=== PATIENT | female | born 1935 | race Caucasian/White ===

== ENCOUNTER 2022-03-15 10:06 | Observation (INO) | payer MEDICARE, MEDICAID, SELFPAY ==
[2022-03-15] VITALS (9 sets, daily range): BP systolic 120–150; BP diastolic 77–91; PULSE 74–90; RESP 16; TEMP 36.7–37.3; O2SAT 90–96; BMI 24.6; BMI 23.5
--- NOTE | 2022-03-15 11:06 | CT_ITS ---
WS: [id number] CT ABDOMEN AND PELVIS NONCONTRAST HISTORY: Pain and tenderness. TECHNIQUE: Imaging performed through the abdomen and pelvis. Coronal and sagittal reformats are submi tted. All CT scans at [facility] use at least one of these dose optimization techniques: auto mated exposure control; mA and/or kV adjustment per patient size (includes targeted exams where dose is matched to clinical indication); or iterative reconstruction. DLP: 1007.82 mGy.cm COMPARISON: None available. Lower thorax: RIGHT pleural-based calcification. Heart size is normal. Small hiatal hernia. Liver: Hepatic granulomatous. No mass or bile duct dilatation. Gallbladder: Normal gallbladder. Pancreas: Mild atrophy of the pancreas. No mass or inflammation. Spleen: Normal. Adrenal glands: Normal. No mass. Right kidney: Normal size kidney. Exophytic cyst from the lower pole measures 6.3 x 6.6 cm. No renal obstruction. Left kidney: Normal size kidney with no mass or hydronephrosis. Aorta: Ectatic calcified thoracic aorta. 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 No free fluid, intraperitoneal air or significant lymphadenopathy. GI tract: Nondistended stomach. No dilatation of the small bowel. Extensive constipation and ectatic tortuous colon. Beginning in the descending colon there is pericol onic inflammation and wall thickening and numerous diverticula. There is fluid within the submucosa o f the distal descending and the sigmoid colon. No free air or focal abscess. Abdominal wall: Negative. No hernia. Pelvis: No free fluid or adenopathy. Urinary bladder is not distended. Osseous structures: Unremarkable. CT/CT abdomen pelvis wo con [id number] IMPRESSION: 1. Moderate to severe acute diverticulitis beginning in the distal descending colon through the sigmoid colon. Circumferential wall thickening with edema and inflammation. There is crescentic shaped fluid in the wall of the descending c olon. Without contrast cannot exclude abscess. This area measures approximately 3.8 x 0.8 cm. Extensive diverticular disease. 2. No free fluid or free air. 3. Extensive atherosclerosis aorta with ectasia. 4. RIGHT renal cyst.
--- NOTE | 2022-03-15 11:27 | W.ED.GENADLT ---
HPI - General Adult General: Chief complaint: General Medical Stated complaint: Groin Pain Time Seen by Provider: 03/15/22 10:16 History of Present Illness: 86-year-old female reports left lower abdominal and pelvic pain for the last 2 or 3 days. He has been getting worse. She reports no trauma. She has not had any nausea, vomiting, fever. It is worse with movement or palpation. Her last bowel movement was 3 days ago but this is not unusual for her. She is able to pass gas. She denies any abnormal symptoms with her urine. She does have a history of diverticulitis in the remote past. She denies any hematochezia or melena. Physical Exam Narrative: EXAM NARRATIVE: I have reviewed the triage vital signs. Const: Well-nourished, Well-developed, appearing stated age, NAD Eyes: EOMI, no conjunctival injection, and symmetrical lids. ENMT: Atraumatic head and facial exam, external nose and ears normal Neck: Symmetric, trachea midline, no swelling, no JVD, ROM wnl CVS: Regular rate, radial pulse 2+, no peripheral edema RESP: Unlabored respirations, symmetric expansion, Clear to auscultation bilaterally GI: TTP in LLQ and left mid abdomen MSK: Normocephalic/Atraumatic, extremities w/o deformity, no cyanosis or clubbing, no edema. Left hip is not tender with palpation but if I passively flex her hip, it causes LLQ pain Skin: Warm, Dry, No rashes or lesions noted. Neuro: Sensation grossly intact, DAVIS, no focal neurologic deficits Psych: awake, alert, oriented, appropriate mood and affect Course Vital Signs: Vital signs: Vital Signs Temperature 98.0 F 03/15/22 10:16 Pulse Rate 90 03/15/22 10:16 Respiratory Rate 16 03/15/22 11:35 Blood Pressure 138/80 03/15/22 10:16 Pulse Oximetry 95 03/15/22 10:16 [facility] - General Adult Medical Decision Making Diverticulitis, infectious colitis, stercoral colitis, urinary tract infection, pathologic fracture, neoplastic mass or process, free fluid in the pelvis, ovarian cyst is less likely in this age group, ureterolithiasis, DVT in the iliac or proximal femoral vein, other. CT scan shows moderate to severe acute diverticulitis of the descending and sigmoid colon. There is a crescentic shaped fluid in the wall of the descending colon. Unfortunately the patient could not have IV contrast due to anaphylactic reaction in the past. Therefore this 3.8 x 0.8 cm fluid collection seen on the CT scan is a possible abscess, without contrast this cannot be excluded. Given the patient's age and these findings, I recommended admission. Ciprofloxacin and Flagyl will be started. I consulted with Dr. Avalos, hospitalist for admission. I have also placed a consult for general surgery to follow along given this possible abscess. I am awaiting a return call from Dr. Valdez Lab Data : 03/15/22 11:25 03/15/22 11:25 Radiology Impressions Abdomen/Pelvis CT 03/15/22 11:06 IMPRESSION: 1. Moderate to severe acute diverticulitis beginning in the distal descending colon through the sigmoid colon. Circumferential wall thickening with edema and inflammation. There is crescentic shaped fluid in the wall of the descending colon. Without contrast cannot exclude abscess. This area measures approximately 3.8 x 0.8 cm. Extensive diverticular disease. 2. No free fluid or free air. 3. Extensive atherosclerosis aorta with ectasia. 4. RIGHT renal cyst. Laboratory Results WBC 10.6 10^3/uL (4.0-10.0) H 03/15/22 11:25 RBC 4.06 10^6/uL (4.1-5.3) L 03/15/22 11:25 Hgb 13.4 g/dL (11.5-15.3) 03/15/22 11:25 Hct 41.0 % (37.0-47.0) 03/15/22 11:25 MCV 101.0 fl (81-99) H 03/15/22 11:25 MCH 33.0 pg (28.0-34.0) 03/15/22 11:25 MCHC 32.7 g/dL (30.0-36.0) 03/15/22 11:25 RDW 13.4 % (12.1-15.1) 03/15/22 11:25 Plt Count 186 10^3/cmm (130-400) 03/15/22 11:25 MPV 11.3 fL (7.4-10.4) H 03/15/22 11:25 Neut % (Auto) 71.2 % 03/15/22 11:25 Lymph % (Auto) 17.4 % 03/15/22 11:25 [place] % (Auto) 10.5 % 03/15/22 11:25 Eos % (Auto) 0.2 % 03/15/22 11:25 Baso % (Auto) 0.2 % 03/15/22 11:25 Neut # (Auto) 7.58 10^3/uL (1.8-7.7) 03/15/22 11:25 Lymph # (Auto) 1.9 10^3/uL (0.8-4.8) 03/15/22 11:25 [place] # (Auto) 1.1 10^3/uL (0.2-0.9) H 03/15/22 11:25 Eos # (Auto) 0.0 10^3/uL (0.0-0.8) 03/15/22 11:25 Baso # (Auto) 0.0 10^3/uL (0.0-0.1) 03/15/22 11:25 Nucleated RBC % (auto) 0 % 03/15/22 11:25 Nucleated RBCs # 0.0 /100WBC 03/15/22 11:25 Sodium 136 mmol/L (136-145) 03/15/22 11:25 Potassium 3.7 mmol/L (3.5-5.1) 03/15/22 11:25 Chloride 99 mmol/L (98-107) 03/15/22 11:25 Carbon Dioxide 26 mmol/L (22-29) 03/15/22 11:25 Anion Gap 14.7 (5-19) 03/15/22 11:25 BUN 12 mg/dL (8-23) 03/15/22 11:25 Creatinine 0.7 mg/dL (0.5-0.9) 03/15/22 11:25 GFR Calculation Not Reportable 03/15/22 11:25 Glucose 105 mg/dL (65-115) 03/15/22 11:25 Calculated Osmolality 282 mOsm/kg (285-295) L 03/15/22 11:25 Calcium 9.1 mg/dL (8.5-10.5) 03/15/22 11:25 Total Bilirubin 0.8 mg/dL (0.15-1.2) 03/15/22 11:25 AST 12 U/L (0-32) 03/15/22 11:25 ALT < 5 U/L (0-33) 03/15/22 11:25 Alkaline Phosphatase 73 IU/L (35-105) 03/15/22 11:25 Total Protein 7.1 g/dL (6.6-8.7) 03/15/22 11:25 Albumin 3.9 g/dL (3.5-5.2) 03/15/22 11:25 Globulin 3.2 g/dL (1.3-4.6) 03/15/22 11:25 Discharge Plan Discharge Condition: Stable Prescriptions: No Action lisinopril 20 mg tablet 20 mg PO DAILY 0RF coenzyme Q10 10 mg Capsule 10 mg PO DAILY 0RF amlodipine 2.5 mg tablet 2.5 mg PO DAILY 0RF garlic 500 mg Capsule 500 mg PO DAILY 0RF lovastatin 20 mg tablet 20 mg PO DAILY 0RF Vitamin D3 25 mcg (1,000 unit) Capsule 25 mcg PO DAILY 0RF aspirin 81 mg Capsule 81 mg PO DAILY 0RF Coding Level of Care Code ED Senior Strategy Analyst for Nicky Hathaway
[2022-03-15] MEDS: morphine 4 mg/mL SDV 1 mL 2 MG IVP ×2 (11:35→20:22)
--- NOTE | 2022-03-15 11:36 | PC.NURSE ---
amb pt to bathroom to provide urine specimen pt returned to room stating that she could not provide ua at this time.
[2022-03-15 11:57] LABS: Basophils % 0.2 %; Eosinophils % 0.2 %; Hemoglobin 13.4 g/dL (11.5-15.3); Lymphocytes # 1.9 10^3/uL (0.8-4.8); Lymphocytes % 17.4 %; Mean Corpuscular HGB Conc 32.7 g/dL (30.0-36.0); Mean Platelet Volume 11.3 fL (7.4-10.4); Monocytes # 1.1 10^3/uL (0.2-0.9); Monocytes % 10.5 %; Neutrophils # 7.58 10^3/uL (1.8-7.7); Neutrophils % 71.2 %; Nucleated Red Blood Cells % 0 %; Platelet Count 186 10^3/cmm (130-400); Red Blood Count 4.06 10^6/uL (4.1-5.3); Red Cell Distribution Width 13.4 % (12.1-15.1); White Blood Count 10.6 10^3/uL (4.0-10.0)
[2022-03-15 12:19] LABS: Alanine Aminotransferase < 5 U/L (0-33); Albumin Level 3.9 g/dL (3.5-5.2); Alkaline Phosphatase 73 IU/L (35-105); Aspartate Amino Transferase 12 U/L (0-32); Blood Urea Nitrogen 12 mg/dL (8-23); Calcium 9.1 mg/dL (8.5-10.5); Carbon Dioxide 26 mmol/L (22-29); Chloride 99 mmol/L (98-107); Globulin 3.2 g/dL (1.3-4.6); Glucose 105 mg/dL (65-115); Osmolality Calculated 282 mOsm/kg (285-295); Sodium 136 mmol/L (136-145); Total Bilirubin 0.8 mg/dL (0.15-1.2); Total Protein 7.1 g/dL (6.6-8.7)
[2022-03-15 12:28] LABS: Anion Gap 14.7 (5-19); Potassium 3.7 mmol/L (3.5-5.1)
[2022-03-15] MEDS: metroNIDAZOLE IV 500 MG/100 ML PREMIX 100 MG IV (13:19)
[2022-03-15] MEDS: ciprofloxacin 400 MG/200 ML PREMIX 200 MG IV (14:02)
--- NOTE | 2022-03-15 14:05 | PM.HP ---
Providers/Chief Complaint Chief Complaint: Groin Pain History of Present Illness Lana Almendarez is a 86 year old female with PMH of HTN came in with C/O left lower quadrant abdominal pain Started on Monday and since then it has got progressively worsened, she describes the pain as sharp pain, Radiating along thighs, she has denied any fever chills nausea vomiting, she has history of chronic constipation, usually the frequency of BM is twice a week, she does take laxatives at home as needed. Pertinent Imaging studies : CT abdomen pelvis wo con?: Moderate to severe acute diverticulitis beginning in the distal descending colon through the sigmoid colon. Circumferential wall thickening with edema and inflammation. There is crescentic shaped fluid in the wall of the descending colon. Without contrast cannot exclude abscess. This area measures approximately 3.8 x 0.8 cm. Extensive diverticular disease. No free fluid or free air. Pertinent Labs : WBC : 10.6 , H&H : 13/41 , PLT : 186 , Na: 136, k :3.7 BUN/SCR ; 12/0.7 AST,ALT,ALP:Normal Patinet received metro and cipro in the ER. Review of Systems General: Reports: 10 or more systems reviewed and unremarkable except in HPI and below Const: Denies: fever(s), chills, body aches, change in appetite or diaphoresis Card: Denies: palpitations, edema, swelling of feet/ankles, dyspnea on exertion, orthopnea or leg pain with exertion Resp: Denies: dyspnea, productive cough, wheezing or pain on inspiration GI: Reports: abdominal pain and constipation; Denies: nausea, vomiting or diarrhea : Denies: flank pain Musc: Denies: back pain, extremity pain or extremity swelling Neuro: Denies: headache(s), difficulty walking or confusion Medications/Allergies Home Medications Medication Instructions Recorded Confirmed Last Taken Type amlodipine 2.5 mg tablet 2.5 mg PO DAILY 03/15/22 03/15/22 03/15/22 History aspirin 81 mg capsule 81 mg PO DAILY 03/15/22 03/15/22 03/15/22 History cholecalciferol (vitamin D3) 25 25 mcg PO DAILY 03/15/22 03/15/22 03/15/22 History mcg (1,000 unit) capsule (Vitamin D3) coenzyme Q10 10 mg capsule 10 mg PO DAILY 05/03/15/22 03/15/22 History garlic 500 mg capsule 500 mg PO DAILY 03/15/22 03/15/22 03/15/22 History lisinopril 20 mg tablet 20 mg PO DAILY 03/15/22 03/15/22 03/15/22 History lovastatin 20 mg tablet 20 mg PO DAILY 03/15/22 03/15/22 03/15/22 History Allergies Allergy/AdvReac Type Severity Reaction Status Date / Time contrast dye Allergy ALGY-Anaphy Uncoded 03/15/22 12:37 laxis Vitals/I&O/Wt Last Vital Signs Temp 98.0 F 03/15/22 10:16 Pulse 90 03/15/22 10:16 Resp 16 03/15/22 11:35 BP 138/80 03/15/22 10:16 Pulse Ox 95 03/15/22 10:16 Weight last 48 hrs Weight 67.132 kg Physical Exam Const: COMMON NORMALS: patient oriented x3 HENMT: COMMON NORMALS: normocephalic and atraumatic HEAD & SCALP: normocephalic and atraumatic Eye: GENERAL EYE: appearance normal, both eyes and all related structures Chest: COMMONS NORMALS: normal inspection of the chest and normal palpation of entire chest wall CHEST: Yes Symmetrical chest wall rise Resp: COMMON NORMALS: normal respiratory effort, No retractions, No use of accessory muscles and clear to auscultation bilaterally EFFORT & INSPECTION: Yes symmetric chest movement AUSCULTATION: clear to auscultation bilaterally Cardio: COMMON NORMALS: regular rate, regular rhythm, S1 normal heart sound present, S2 normal heart sound present, No gallops present (Cardio), No murmurs present (Cardio), No rub (Cardio) and Peripheral pulses 2+ throughout RATE: regular rate RHYTHM: regular rhythm HEART SOUNDS: S1 normal heart sound present and S2 normal heart sound present PERIPHERAL PULSES: Peripheral pulses 2+ throughout GI: COMMON NORMALS: Normal to inspection, nondistended, normoactive bowel sounds present AUSCULTATION: Yes normoactive bowel sounds RECTAL EXAM: deferred OTHER: Left lower quadrant tenderness present, no guarding no rigidity no rebound tenderness. Extremity: COMMON NORMALS: no clubbing, cyanosis or edema and no pedal edema Neuro: COMMON NORMALS: patient oriented x3 Data : 03/15/22 11:25 03/15/22 11:25 A&P Assessment and plan (1) Diverticulitis large intestine: Status: Acute (2) Hypertension: Status: Acute Plan 86 year old female with PMH of HTN came in with C/O left lower quadrant abdominal pain Started on Monday and since then it has got progressively worsened. Assessment: Acute diverticulitis: CT abdomen pelvis wo con?: Moderate to severe acute diverticulitis beginning in the distal descending colon through the sigmoid colon. Circumferential wall thickening with edema and inflammation. There is crescentic shaped fluid in the wall of the descending colon. Without contrast cannot exclude abscess. This area measures approximately 3.8 x 0.8 cm. Extensive diverticular disease. No free fluid or free air. Continue Zosyn IV hydration Pain control Bowel regimen History of hypertension: Continue amlodipine, lisinopril DVT prophylaxis: On Lovenox CODE STATUS:AND Attestations Medical Necessity Statement*: Patient needs to be in hospital for the management of extensive diverticulitis,need for I.V Abxs.Anticipated LOS Greater then 2 midnights. Time Spent in Patient Care: Greater than 35 minutes (>than 50% of time spent in counselling and/or direct pt care on unit). Coding Level of Care Code Acute International Marketing Coordinator for Nicky Fwd Exam Comprehensive Diagnoses Diverticulitis large intestine K57.32 Hypertension I10
[2022-03-15] MEDS: sodium chloride 0.9% 1,000 ML 50 ML IV (14:41)
--- NOTE | 2022-03-15 16:49 | PC.NURSE ---
REPORT CALLED TO DANUTA ZAMARRIPA.
[2022-03-15] MEDS: piperacillin-tazobactam 3.375 GM in sodium chloride 0.9% (plus) 50 ML IV (18:20)
[2022-03-15] MEDS: docusate sodium 100 mg Capsule PO (20:15)
[2022-03-16] VITALS (9 sets, daily range): BP systolic 107–131; BP diastolic 64–87; PULSE 70–90; RESP 14–18; TEMP 36.6–37.3; O2SAT 90–96
[2022-03-16] MEDS: piperacillin-tazobactam 3.375 GM in sodium chloride 0.9% (plus) 50 ML IV ×3 (00:07→17:23)
[2022-03-16] MEDS: morphine 4 mg/mL SDV 1 mL 2 MG IVP (03:43)
[2022-03-16 05:24] LABS: Basophils % 0.3 %; Eosinophils % 0.4 %; Hematocrit 36.3 % (37.0-47.0); Hemoglobin 12.2 g/dL (11.5-15.3); Lymphocytes # 1.7 10^3/uL (0.8-4.8); Lymphocytes % 21.7 %; Mean Corpuscular HGB Conc 33.6 g/dL (30.0-36.0); Mean Corpuscular Volume 98.1 fl (81-99); Mean Platelet Volume 11.5 fL (7.4-10.4); Monocytes # 0.8 10^3/uL (0.2-0.9); Monocytes % 10.3 %; Neutrophils # 5.17 10^3/uL (1.8-7.7); Nucleated Red Blood Cells % 0 %; Platelet Count 161 10^3/cmm (130-400); Red Cell Distribution Width 13.2 % (12.1-15.1); White Blood Count 7.7 10^3/uL (4.0-10.0)
[2022-03-16 05:45] LABS: Blood Urea Nitrogen 12 mg/dL (8-23); Carbon Dioxide 23 mmol/L (22-29); Chloride 102 mmol/L (98-107); Glucose 82 mg/dL (65-115); Osmolality Calculated 281 mOsm/kg (285-295); Sodium 136 mmol/L (136-145)
[2022-03-16 05:51] LABS: Anion Gap 14.9 (5-19); Potassium 3.9 mmol/L (3.5-5.1)
--- NOTE | 2022-03-16 09:27 | PM.PN ---
Subjective Subjective: Patient was seen and examined this morning, left lower quadrant abdominal pain has improved, currently she is tolerating full liquid diet. Medications: Medication Review Details: Generic Name Dose Route Start Last Admin Trade Name Shannan PRN Reason Stop Dose Admin Docusate Sodium 100 mg 03/15/22 18:00 03/15/22 20:15 Docusate Sodium 100 Mg Capsule PO 100 mg BID RUSSEL Administration Sodium Chloride 1,000 mls @ 50 ml s/hr 03/15/22 14:00 03/15/22 14:41 Sodium Chloride 0.9% IV 50 mls/hr .Q20H RUSSEL Administration Piperacillin Sod/T azobactam 50 mls @ 12.5 mls /hr 03/15/22 17:00 03/16/22 04:07 Sod 3.375 gm/ So dium Chloride IV Infused Q8H RUSSEL Infusion Protocol Morphine Sulfate 2 mg 03/15/22 13:58 03/16/22 03:43 Morphine 4 Mg/Ml Sdv 1 Ml IVP 2 mg Q4H PRN Administration SEVERE PAIN Non-Formulary Medi cation 10 mg 03/16/22 09:00 03/16/22 08:10 Coenzyme Q10 PO Not Given DAILY [facility] Vitals/I&O/Wt Last Vital Signs Temp 98.1 F 03/16/22 07:38 Pulse 75 03/16/22 07:38 Resp 18 03/16/22 07:38 BP 108/69 03/16/22 07:38 Pulse Ox 90 03/16/22 07:38 03/15/22 03/16/22 03/16/22 22:59 06:59 14:59 Intake Total 490 / 590 50 / 640 120 / 120 Balance 490 / 590 50 / 640 120 / 120 Weight last 48 hrs Weight 64.042 kg Weight 67.132 kg Physical Exam Const: COMMON NORMALS: patient oriented x3 HENMT: COMMON NORMALS: normocephalic and atraumatic HEAD & SCALP: normocephalic and atraumatic Eye: GENERAL EYE: appearance normal, both eyes and all related structures Chest: COMMONS NORMALS: normal inspection of the chest and normal palpation of entire chest wall CHEST: Yes Symmetrical chest wall rise Resp: COMMON NORMALS: normal respiratory effort, No retractions, No use of accessory muscles and clear to auscultation bilaterally EFFORT & INSPECTION: Yes symmetric chest movement AUSCULTATION: clear to auscultation bilaterally Cardio: COMMON NORMALS: regular rate, regular rhythm, S1 normal heart sound present, S2 normal heart sound present, No gallops present (Cardio), No murmurs present (Cardio), No rub (Cardio) and Peripheral pulses 2+ throughout RATE: regular rate RHYTHM: regular rhythm HEART SOUNDS: S1 normal heart sound present and S2 normal heart sound present PERIPHERAL PULSES: Peripheral pulses 2+ throughout GI: COMMON NORMALS: Normal to inspection, nondistended, normoactive bowel sounds present AUSCULTATION: Yes normoactive bowel sounds RECTAL EXAM: deferred OTHER: Left lower quadrant tenderness present, no guarding no rigidity no rebound tenderness. Extremity: COMMON NORMALS: no clubbing, cyanosis or edema and no pedal edema Neuro: COMMON NORMALS: patient oriented x3 Data : 03/16/22 05:01 03/16/22 05:01 A&P Assessment and plan (1) Diverticulitis large intestine: Status: Acute (2) Hypertension: Status: Acute Plan 86 year old female with PMH of HTN came in with C/O left lower quadrant abdominal pain Started on Monday and since then it has got progressively worsened. Assessment: Acute diverticulitis: CT abdomen pelvis wo con?: Moderate to severe acute diverticulitis beginning in the distal descending colon through the sigmoid colon. Circumferential wall thickening with edema and inflammation. There is crescentic shaped fluid in the wall of the descending colon. Without contrast cannot exclude abscess. This area measures approximately 3.8 x 0.8 cm. Extensive diverticular disease. No free fluid or free air. We will plan to do repeat CT abdomen and pelvis prior to discharge. Continue Zosyn IV hydration Pain control Bowel regimen History of hypertension: Continue amlodipine, hold on lisinopril DVT prophylaxis: On Lovenox CODE STATUS:AND Attestations Medical Necessity Statement*: To be in hospital for management of diverticulitis, need for IV antibiotics. Time Spent in Patient Care: Greater than 35 minutes (>than 50% of time spent in counselling and/or direct pt care on unit). Coding Level of Care Code Acute Social Worker Delinquency Prevention for Enriqueg Fwd Exam Comprehensive Diagnoses Diverticulitis large intestine K57.32 Hypertension I10
[2022-03-16] MEDS: amlodipine 5 mg Tablet 2.5 MG PO (09:43)
[2022-03-16] MEDS: docusate sodium 100 mg Capsule PO ×2 (09:43→17:23)
[2022-03-16] MEDS: atorvastatin 40 mg Tablet 20 MG PO (09:43)
[2022-03-16] MEDS: cholecalciferol (vitamin D3) 1,000 unit Tablet 1000 UNIT PO (09:44)
[2022-03-16] MEDS: aspirin 81 mg EC Tablet PO (09:44)
[2022-03-16] MEDS: sodium chloride 0.9% 1,000 ML 50 ML IV (09:45)
--- NOTE | 2022-03-16 10:18 | PC.CHAP ---
Pastoral Care Encounter/Spiritual Assessment Type of Contact [] Declined heavy mobile equipment repairer visit [] Patient/Family/Request visit [] Outpatient visit [] Follow-up visit [] Physician referral [] Code/Alert [x] Routine visit [] Staff referral [] Actively dying [] Patient sleeping [] Family support [] [] Out of room [] Palliative care [] [] Receiving care in room [] Pre-surgical visit [] Trauma [] Long length of stay [] ICU visit [] Other: Relational/Emotional Strength [x] Patient feels connected with others/family/visitors/staff [] Distress [] Loneliness/isolation [] Abandonment Spirituality of Patient [x] Person of Saumya [] Attends Adventist of their [place] [x] Believes in Prayer [] Reads Bible or Synagogue materials [] There are Spiritual issues to be addressed Director Of Publications Interventions x] Spiritual/emotional support [] Crisis/trauma care [] Spiritual counseling [] Bereavement support [] Provided bereavement packet [] Provided Bible/devotional materials [] Provided toy/stuffed animal, coloring book to patient or family member [] Provided Communion [] Anointing/Russell [] Salvation x[x] Completed spiritual assessment [] Other: Impact on Illness or Injury [] Angry [] Fearful [] Anxious [] Often cries [] Exhaustion [] Unable to work [] Unable to attend latter day [] Unable to walk/stand [] Unable to read [] Unable to drive [] Unable to eat/drink [] Unable to sleep [] Unable to be with family [] Patient intubated [] Other: Summary Time spent with patient
[2022-03-16] MEDS: acetaminophen 325 mg Tablet 650 MG PO (13:40)
[2022-03-16] MEDS: enoxaparin 40 mg/0.4 mL Syringe SUBCUT (14:46)
--- NOTE | 2022-03-16 15:42 | PC.NURSE ---
Verbal permission given by patient that can talk to kervin Almendarez.
[2022-03-17] MEDS: piperacillin-tazobactam 3.375 GM in sodium chloride 0.9% (plus) 50 ML IV ×3 (01:14→17:20)
[2022-03-17 03:28] VITALS: BP 127/80; PULSE 78; RESP 18; TEMP 37.3; O2SAT 93
[2022-03-17] MEDS: sodium chloride 0.9% 1,000 ML 50 ML IV (05:30)
[2022-03-17 05:53] LABS: Basophils # 0.1 10^3/uL (0.0-0.1); Basophils % 0.6 %; Eosinophils # 0.1 10^3/uL (0.0-0.8); Eosinophils % 0.9 %; Hematocrit 36.4 % (37.0-47.0); Hemoglobin 11.5 g/dL (11.5-15.3); Lymphocytes # 1.5 10^3/uL (0.8-4.8); Lymphocytes % 18.8 %; Mean Corpuscular HGB Conc 31.6 g/dL (30.0-36.0); Mean Corpuscular Hemoglobin 32.7 pg (28.0-34.0); Mean Corpuscular Volume 103.4 fl (81-99); Mean Platelet Volume 11.3 fL (7.4-10.4); Monocytes # 0.8 10^3/uL (0.2-0.9); Monocytes % 9.9 %; Neutrophils # 5.56 10^3/uL (1.8-7.7); Neutrophils % 69.5 %; Nucleated Red Blood Cells % 0 %; Platelet Count 185 10^3/cmm (130-400); Red Blood Count 3.52 10^6/uL (4.1-5.3)
[2022-03-17 06:08] LABS: Anion Gap 17.2 (5-19); Blood Urea Nitrogen 10 mg/dL (8-23); Calcium 8.2 mg/dL (8.5-10.5); Carbon Dioxide 19 mmol/L (22-29); Chloride 102 mmol/L (98-107); Glucose 67 mg/dL (65-115); Osmolality Calculated 277 mOsm/kg (285-295); Potassium 3.2 mmol/L (3.5-5.1); Sodium 135 mmol/L (136-145)
[2022-03-17 07:43] VITALS: BP 119/73; PULSE 81; TEMP 36.9; O2SAT 93
[2022-03-17] MEDS: potassium chloride ER 20 mEq Tablet 40 MEQ PO (08:50)
[2022-03-17] MEDS: cholecalciferol (vitamin D3) 1,000 unit Tablet 1000 UNIT PO (08:50)
[2022-03-17] MEDS: atorvastatin 40 mg Tablet 20 MG PO (08:51)
[2022-03-17] MEDS: amlodipine 5 mg Tablet 2.5 MG PO (08:51)
[2022-03-17] MEDS: aspirin 81 mg EC Tablet PO (08:51)
[2022-03-17] MEDS: docusate sodium 100 mg Capsule PO ×2 (08:51→17:20)
[2022-03-17 10:22] VITALS: PULSE 81; O2SAT 93
[2022-03-17] MEDS: lactulose oral liq 20 gm/30 mL UDC 30 GM PO ×2 (10:51→14:42)
--- NOTE | 2022-03-17 11:59 | PM.PN ---
Subjective Subjective: Patient was seen and examined this morning, left lower quadrant pain has significantly improved, she rates her pain at 3, She wants to try regular food, no bowel movement since he has been in the hospital. Will give lactulose today. Medications: Medication Review Details: Generic Name Dose Route Start Last Admin Trade Name Christopherq PRN Reason Stop Dose Admin Docusate Sodium 100 mg 03/15/22 18:00 03/15/22 20:15 Docusate Sodium 100 Mg Capsule PO 100 mg BID RUSSEL Administration Sodium Chloride 1,000 mls @ 50 ml s/hr 03/15/22 14:00 03/15/22 14:41 Sodium Chloride 0.9% IV 50 mls/hr .Q20H RUSSEL Administration Piperacillin Sod/T azobactam 50 mls @ 12.5 mls /hr 03/15/22 17:00 03/16/22 04:07 Sod 3.375 gm/ So dium Chloride IV Infused Q8H RUSSEL Infusion Protocol Morphine Sulfate 2 mg 03/15/22 13:58 03/16/22 03:43 Morphine 4 Mg/Ml Sdv 1 Ml IVP 2 mg Q4H PRN Administration SEVERE PAIN Non-Formulary Medi cation 10 mg 03/16/22 09:00 03/16/22 08:10 Coenzyme Q10 PO Not Given DAILY RUSSEL Vitals/I&O/Wt Last Vital Signs Temp 98.5 F 03/17/22 07:43 Pulse 81 03/17/22 10:22 Resp 18 03/17/22 03:28 BP 119/73 03/17/22 07:43 Pulse Ox 93 03/17/22 10:22 03/16/22 03/17/22 03/17/22 22:59 06:59 14:59 Intake Total 170 / 8415.986 1719.5 / 2590.833 40 / 40 Output Total 500 / 500 800 / 1300 300 / 300 Balance -330 / 853.333 437.5 / 1290.833 -260 / -260 Weight last 48 hrs Weight 64.042 kg Physical Exam Const: COMMON NORMALS: patient oriented x3 HENMT: COMMON NORMALS: normocephalic and atraumatic HEAD & SCALP: normocephalic and atraumatic Eye: GENERAL EYE: appearance normal, both eyes and all related structures Chest: COMMONS NORMALS: normal inspection of the chest and normal palpation of entire chest wall CHEST: Yes Symmetrical chest wall rise Resp: COMMON NORMALS: normal respiratory effort, No retractions, No use of accessory muscles and clear to auscultation bilaterally EFFORT & INSPECTION: Yes symmetric chest movement AUSCULTATION: clear to auscultation bilaterally Cardio: COMMON NORMALS: regular rate, regular rhythm, S1 normal heart sound present, S2 normal heart sound present, No gallops present (Cardio), No murmurs present (Cardio), No rub (Cardio) and Peripheral pulses 2+ throughout RATE: regular rate RHYTHM: regular rhythm HEART SOUNDS: S1 normal heart sound present and S2 normal heart sound present PERIPHERAL PULSES: Peripheral pulses 2+ throughout GI: COMMON NORMALS: Normal to inspection, nondistended, normoactive bowel sounds present AUSCULTATION: Yes normoactive bowel sounds RECTAL EXAM: deferred OTHER: Left lower quadrant tenderness present, no guarding no rigidity no rebound tenderness. Extremity: COMMON NORMALS: no clubbing, cyanosis or edema and no pedal edema Neuro: COMMON NORMALS: patient oriented x3 Data : 03/17/22 05:03 03/17/22 05:03 A&P Assessment and plan (1) Diverticulitis large intestine: Status: Acute (2) Hypertension: Status: Acute Plan 86 year old female with PMH of HTN came in with C/O left lower quadrant abdominal pain Started on Monday and since then it has got progressively worsened. Assessment: Acute diverticulitis: CT abdomen pelvis wo con?: Moderate to severe acute diverticulitis beginning in the distal descending colon through the sigmoid colon. Circumferential wall thickening with edema and inflammation. There is crescentic shaped fluid in the wall of the descending colon. Without contrast cannot exclude abscess. This area measures approximately 3.8 x 0.8 cm. Extensive diverticular disease. No free fluid or free air. We will plan to do repeat CT abdomen and pelvis prior to discharge. Patient will have to follow-up with surgery as an outpatient in 6 weeks for possible colonoscopy. Continue Zosyn IV hydration Pain control Bowel regimen History of hypertension: Continue amlodipine, hold on lisinopril DVT prophylaxis: On Lovenox CODE STATUS:AND Attestations Medical Necessity Statement*: Patient is in hospital for management of diverticulitis need for IV antibiotics. Time Spent in Patient Care: Greater than 35 minutes (>than 50% of time spent in counselling and/or direct pt care on unit). Coding Level of Care Code Acute Case Finisher for Chg Fwd Exam Comprehensive Diagnoses Diverticulitis large intestine K57.32 Hypertension I10
[2022-03-17 13:06] VITALS: BP 125/68; PULSE 81; RESP 18; TEMP 36.8; O2SAT 93
[2022-03-17] MEDS: enoxaparin 40 mg/0.4 mL Syringe SUBCUT (14:41)
[2022-03-17 16:40] VITALS: BP 152/85; PULSE 83; RESP 18; TEMP 36.4; O2SAT 93
[2022-03-17 20:00] VITALS: BP 132/88; PULSE 88; RESP 18; TEMP 36.4; O2SAT 97
[2022-03-18] VITALS: BP 129/82; PULSE 61; RESP 18; TEMP 36.6; O2SAT 97
[2022-03-18] MEDS: piperacillin-tazobactam 3.375 GM in sodium chloride 0.9% (plus) 50 ML IV ×2 (01:00→09:23)
[2022-03-18 04:00] VITALS: BP 134/76; PULSE 71; RESP 20; TEMP 36.9; O2SAT 93
[2022-03-18 04:36] LABS: Basophils % 0.5 %; Eosinophils % 0.5 %; Hematocrit 38.2 % (37.0-47.0); Lymphocytes # 1.9 10^3/uL (0.8-4.8); Lymphocytes % 22.6 %; Mean Corpuscular HGB Conc 31.4 g/dL (30.0-36.0); Mean Corpuscular Hemoglobin 32.6 pg (28.0-34.0); Mean Corpuscular Volume 103.8 fl (81-99); Mean Platelet Volume 11.2 fL (7.4-10.4); Monocytes # 0.9 10^3/uL (0.2-0.9); Monocytes % 10.3 %; Neutrophils # 5.47 10^3/uL (1.8-7.7); Neutrophils % 65.9 %; Nucleated Red Blood Cells % 0 %; Platelet Count 224 10^3/cmm (130-400); Red Blood Count 3.68 10^6/uL (4.1-5.3); White Blood Count 8.3 10^3/uL (4.0-10.0)
[2022-03-18 05:04] LABS: Anion Gap 15.7 (5-19); Blood Urea Nitrogen 9 mg/dL (8-23); Calcium 8.5 mg/dL (8.5-10.5); Carbon Dioxide 22 mmol/L (22-29); Chloride 104 mmol/L (98-107); Glucose 81 mg/dL (65-115); Osmolality Calculated 284 mOsm/kg (285-295); Potassium 3.7 mmol/L (3.5-5.1); Sodium 138 mmol/L (136-145)
--- NOTE | 2022-03-18 07:50 | CT_ITS ---
WS: [id number] CT ABDOMEN AND PELVIS NONCONTRAST HISTORY: Lt lower quadrant pain TECHNIQUE: Imaging performed through the abdomen and pelvis. Coronal and sagittal reformats are submi tted. All CT scans at [facility] use at least one of these dose optimization techniques: auto mated exposure control; mA and/or kV adjustment per patient size (includes targeted exams where dose is matched to clinical indication); or iterative reconstruction. DLP: 991.15 mGy.cm COMPARISON: 03/15/2022 Lower thorax: Mild atelectasis at the RIGHT lung base. No pneumonia. Heart is very mildly prominent. No hiatal hernia seen today. Liver: Calcification along the RIGHT diaphragmatic surface. Liver is normal size with granulomatous. No bile duct dilatation. Gallbladder: Mildly hydropic gallbladder. May be due to fasting state. No adjacent inflammation. No b ile duct dilatation. Pancreas: Mild diffuse atrophy. Spleen: Normal. Adrenal glands: Normal. No mass. Right kidney: Normal size kidney with a stable cyst. Left kidney: No change. No obstruction. Aorta: Extensive atherosclerosis aorta. Mild aneurysmal dilatation to 3.0 cm. Heavy calcification. No free fluid, intraperitoneal air or significant lymphadenopathy. GI tract: Nondistended stomach and small bowel. Increased amount of air and fecal material throughout the colon. Significant inflammatory process begins in the distal descending colon through the sigmoi d. There is evidence for acute diverticulitis with a moderate amount of inflammation in the pericolon ic fat. Numerous inflamed diverticula. Again noted is the wall thickening and increase fluid along th e lateral descending colon. This crescentic shaped area is not increasing in size. Focal area of decr eased attenuation measuring 14 mm in the wall of the descending colon. The lumen of the colon is narr owed. Abdominal wall: Foci of air in the subcutaneous soft tissue on the LEFT from injection sites. Pelvis: Normal. Osseous structures: Increase in the lumbar lordosis. CT/CT abdomen pelvis wo con [id number] IMPRESSION: 1. Very mild improvement in the overall extent of the acute diverticulitis inv olving the descending and sigmoid colon. Ill-defined complex collection along t he lateral aspect of the descending colon is contiguous with the submucosa. Hig hly suspicious for 14 mm abscess contained within the wall of the colon. Cannot confirm without IV contrast. Phlegmonous changes but no definite abscess at th is time. 2. No free fluid. 3. Mild aneurysmal dilatation aorta. 4. Large RIGHT renal cyst.
[2022-03-18 08:35] VITALS: BP 130/89; PULSE 70; RESP 16; TEMP 36.8; O2SAT 91
[2022-03-18] MEDS: amlodipine 5 mg Tablet 2.5 MG PO (09:23)
[2022-03-18] MEDS: aspirin 81 mg EC Tablet PO (09:23)
[2022-03-18] MEDS: cholecalciferol (vitamin D3) 1,000 unit Tablet 1000 UNIT PO (09:23)
[2022-03-18] MEDS: docusate sodium 100 mg Capsule PO (09:23)
[2022-03-18] MEDS: atorvastatin 40 mg Tablet 20 MG PO (09:23)
--- NOTE | 2022-03-18 10:12 | PM.DCS ---
Discharge Providers Date of Admission: 03/15/22 13:13 Date of Discharge: March 18, 2022 Attending Provider at Admission: Don Avalos MD Attending Provider at Discharge: Don Avalos MD Diagnoses at Discharge Discharge Diagnosis (1) Diverticulitis large intestine: Status: Acute (2) Hypertension: Status: Acute Reason for Visit Reason for Visit: Groin Pain Hospital Course Hospital Course Lana Almendarez is a 86 year old female with PMH of HTN came in with C/O left lower quadrant abdominal pain Started on Monday and since then it has got progressively worsened, she describes the pain as sharp pain, Radiating along thighs, she has denied any fever chills nausea vomiting, she has history of chronic constipation, usually the frequency of BM is twice a week, she does take laxatives at home as needed. Pertinent Imaging studies : CT abdomen pelvis wo con?: Moderate to severe acute diverticulitis beginning in the distal descending colon through the sigmoid colon. Circumferential wall thickening with edema and inflammation. There is crescentic shaped fluid in the wall of the descending colon. Without contrast cannot exclude abscess. This area measures approximately 3.8 x 0.8 cm. Extensive diverticular disease. No free fluid or free air. Pertinent Labs : WBC : 10.6 , H&H : 13/41 , PLT : 186 , Na: 136, k :3.7 BUN/SCR ; 12/0.7 AST,ALT,ALP:Normal Patinet received metro and cipro in the ER. Hospital course: She was admitted for the management of diverticulitis: She was kept on broad-spectrum antibiotics, to which she has fairly responded well Left lower quadrant abdominal pain has significantly improved, she was tolerating diet well, she has chronic constipation, she was able to pass stool with lactulose. Repeat CT scan abdomen and pelvis without contrast comment on possible 14 mm abscess contained within the wall of the colon, But currently patient is afebrile, hemodynamically stable, no leukocytosis, for now it has been decided to discharge her on p.o. antibiotics for another 14 days (metronidazole and ciprofloxacin ), she has been asked to follow-up with her primary care physician as well as surgery as an outpatient in next [address] scan has also been scheduled for follow-up of possibly reported abscess. She has also been advised to monitor for any worsening of symptoms (like fever worsening abdominal pain, bloody stool ). In the event of any of these' she has been asked to return to the ER. Overall patient has responded well to medical management she is being discharged in stable condition to home. She has been instructed to indulge in healthy eating comprising of a lot of fibrous content in food, to help with her constipation. She has also been discharged on oral laxatives. Physical Exam Const: COMMON NORMALS: patient oriented x3 HENMT: COMMON NORMALS: normocephalic and atraumatic HEAD & SCALP: normocephalic and atraumatic Eye: GENERAL EYE: appearance normal, both eyes and all related structures Chest: COMMONS NORMALS: normal inspection of the chest and normal palpation of entire chest wall CHEST: Yes Symmetrical chest wall rise Resp: COMMON NORMALS: normal respiratory effort, No retractions, No use of accessory muscles and clear to auscultation bilaterally EFFORT & INSPECTION: Yes symmetric chest movement AUSCULTATION: clear to auscultation bilaterally Cardio: COMMON NORMALS: regular rate, regular rhythm, S1 normal heart sound present, S2 normal heart sound present, No gallops present (Cardio), No murmurs present (Cardio), No rub (Cardio) and Peripheral pulses 2+ throughout RATE: regular rate RHYTHM: regular rhythm HEART SOUNDS: S1 normal heart sound present and S2 normal heart sound present PERIPHERAL PULSES: Peripheral pulses 2+ throughout GI: COMMON NORMALS: Normal to inspection, nondistended, normoactive bowel sounds present AUSCULTATION: Yes normoactive bowel sounds RECTAL EXAM: deferred Extremity: COMMON NORMALS: no clubbing, cyanosis or edema and no pedal edema Neuro: COMMON NORMALS: patient oriented x3 Discharge Data Studies Completed and Pending Completed Studies During Hospitalization Category Date Time Status CT abdomen pelvis wo con [id number] Routine Cat Scan 03/18/22 07:[address] abdomen pelvis wo con [id number] Urgent Cat Scan 03/15/22 11:06 Completed Pending at discharge Category Date Time Status Urinalysis Stat Lab 03/15/22 11:06 Uncollected Radiology Impressions Abdomen/Pelvis CT 03/18/22 07:50 IMPRESSION: 1. Very mild improvement in the overall extent of the acute diverticulitis involving the descending and sigmoid colon. Ill-defined complex collection along the lateral aspect of the descending colon is contiguous with the submucosa. Highly suspicious for 14 mm abscess contained within the wall of the colon. Cannot confirm without IV contrast. Phlegmonous changes but no definite abscess at this time. 2. No free fluid. 3. Mild aneurysmal dilatation aorta. 4. Large RIGHT renal cyst. Laboratory Results WBC 8.3 10^3/uL (4.0-10.0) 03/18/22 03:46 RBC 3.68 10^6/uL (4.1-5.3) L 03/18/22 03:46 Hgb 12.0 g/dL (11.5-15.3) 03/18/22 03:46 Hct 38.2 % (37.0-47.0) 03/18/22 03:46 MCV 103.8 fl (81-99) H 03/18/22 03:46 MCH 32.6 pg (28.0-34.0) 03/18/22 03:46 MCHC 31.4 g/dL (30.0-36.0) 03/18/22 03:46 RDW 13.0 % (12.1-15.1) 03/18/22 03:46 Plt Count 224 10^3/cmm (130-400) 03/18/22 03:46 MPV 11.2 fL (7.4-10.4) H 03/18/22 03:46 Neut % (Auto) 65.9 % 03/18/22 03:46 Lymph % (Auto) 22.6 % 03/18/22 03:46 [place] % (Auto) 10.3 % 03/18/22 03:46 Eos % (Auto) 0.5 % 03/18/22 03:46 Baso % (Auto) 0.5 % 03/18/22 03:46 Neut # (Auto) 5.47 10^3/uL (1.8-7.7) 03/18/22 03:46 Lymph # (Auto) 1.9 10^3/uL (0.8-4.8) 03/18/22 03:46 [place] # (Auto) 0.9 10^3/uL (0.2-0.9) 03/18/22 03:46 Eos # (Auto) 0.0 10^3/uL (0.0-0.8) 03/18/22 03:46 Baso # (Auto) 0.0 10^3/uL (0.0-0.1) 03/18/22 03:46 Nucleated RBC % (auto) 0 % 03/18/22 03:46 Nucleated RBCs # 0.0 /100WBC 03/18/22 03:46 Sodium 138 mmol/L (136-145) 03/18/22 03:46 Potassium 3.7 mmol/L (3.5-5.1) 03/18/22 03:46 Chloride 104 mmol/L (98-107) 03/18/22 03:46 Carbon Dioxide 22 mmol/L (22-29) 03/18/22 03:46 Anion Gap 15.7 (5-19) 03/18/22 03:46 BUN 9 mg/dL (8-23) 03/18/22 03:46 Creatinine 0.7 mg/dL (0.5-0.9) 03/18/22 03:46 GFR Calculation Not Reportable 03/18/22 03:46 Glucose 81 mg/dL (65-115) 03/18/22 03:46 Calculated Osmolality 284 mOsm/kg (285-295) L 03/18/22 03:46 Calcium 8.5 mg/dL (8.5-10.5) 03/18/22 03:46 Total Bilirubin 0.8 mg/dL (0.15-1.2) 03/15/22 11:25 AST 12 U/L (0-32) 03/15/22 11:25 ALT < 5 U/L (0-33) 03/15/22 11:25 Alkaline Phosphatase 73 IU/L (35-105) 03/15/22 11:25 Total Protein 7.1 g/dL (6.6-8.7) 03/15/22 11:25 Albumin 3.9 g/dL (3.5-5.2) 03/15/22 11:25 Globulin 3.2 g/dL (1.3-4.6) 03/15/22 11:25 Vitals Last Vital Signs Temp 98.2 F 03/18/22 08:35 Pulse 70 03/18/22 08:35 Resp 16 03/18/22 08:35 BP 130/89 03/18/22 08:35 Pulse Ox 91 03/18/22 08:35 Discharge Plan Discharge Patient Disposition: Home Condition: Stable Prescriptions: New metronidazole 500 mg tablet 500 mg PO Q8H 14 Days Qty: 42 0RF levofloxacin 750 mg tablet 750 mg PO DAILY 14 Days Qty: 14 0RF Miralax 17 gram/dose powder 17 g PO DAILY 14 Days Qty: 119 0RF lactulose 10 gram/15 mL solution 10 g PO DAILY PRN (Reason: constipation) Qty: 237 0RF Continued lisinopril 20 mg tablet 20 mg PO DAILY 0RF coenzyme Q10 10 mg Capsule 10 mg PO DAILY 0RF amlodipine 2.5 mg tablet 2.5 mg PO DAILY 0RF garlic 500 mg Capsule 500 mg PO DAILY 0RF lovastatin 20 mg tablet 20 mg PO DAILY 0RF Vitamin D3 25 mcg (1,000 unit) Capsule 25 mcg PO DAILY 0RF aspirin 81 mg Capsule 81 mg PO DAILY 0RF Discharge Orders: Discharge Order (Routine); Ordered 03/18/22 Ordered By: Don Avalos Other Ambulatory Orders: CT abdomen pelvis wo con [id number] (Routine) Timeframe: 2 Weeks Facility: [facility] - Location: Radiology [place] [facility] Ordered By: Don Avalos Referrals: Alf Valdez MD [Physician] - 03/29/22 1:50 pm Adair Freed MD [Physician] - 03/23/22 1:30 pm () Discharge Activity: Resume usual activity Patient Instructions: Opioid Safety Discharge Attestations Time Spent in Discharge Care*: less than 30 min Quality Metrics Clinical Quality Measures [ No reported AMI, CVA or VTE this stay] Coding Level of Care Code Acute Chg FW DC note Diagnoses Diverticulitis large intestine K57.32 Hypertension I10
[2022-03-18 11:16] VITALS: BP 123/87; PULSE 70; RESP 18; TEMP 36.8; O2SAT 91
--- NOTE | 2022-03-18 11:22 | PC.SOCIAL ---
IMM UPDATED IMM dated and initialed and copy put in chart and given to patient
== END 2022-03-18 13:39 | disposition home or self-care (01) ==
LOC: ER 15:58 → MEDSURG 21:37
PROVIDERS: Admitting Provider Internal Medicine; Emergency Provider Emergency Medicine; Visit Provider Internal Medicine
DX: K57.32 Diverticulitis of large intestine without perforation or abscess without bleeding (principal); I10 Essential (primary) hypertension; Z79.82 Long term (current) use of aspirin
CPT/HCPCS: 36415; 74176; 80048; 80053; 85025; 96365; 96367; 96372; 96375; 99285; G0378; J0744; J1650; J2270; J2543; J7030; S0030

== ENCOUNTER 2022-05-22 06:39 | Observation (INO) | payer MEDICARE, MEDICAID, SELFPAY ==
[2022-05-22] VITALS (13 sets, daily range): BP systolic 96–127; BP diastolic 64–82; PULSE 59–83; RESP 14–17; TEMP 36.6–36.8; O2SAT 90–95; BMI 22.3; BMI 22.7
--- NOTE | 2022-05-22 06:48 | W.ED.ABDPA2 ---
HPI - Abdominal Pain General: Chief Complaint: Abdominal Pain Stated Complaint: Abd pains Time Seen by Provider: 05/22/22 06:45 History of Present Illness: 86-year-old female presents with left lower quadrant pain. She reports that it started yesterday morning. She thinks that infection is back patient reports that she was diagnosed with diverticulitis at the beginning of March and treated. She reports some nausea and dry heaves but no vomiting. She reports she has had some constipation and hard bowel movement had to take stool softener to have a bowel movement this morning. She denies any fever, chills, cough or other systemic complaints. She denies any urinary symptoms. Associated Symptoms: Reports constipation and nausea; Denies chills, diarrhea, dysuria, fever(s) and vomiting Review of Systems Const: Denies: fever(s) or chills Eyes: Denies: change in vision ENMT: Denies: throat pain or ear or mastoid pain Card: Denies: chest pain or palpitations Resp: Denies: dyspnea or productive cough GI: Reports: abdominal pain, nausea and constipation; Denies: vomiting or diarrhea : Denies: flank pain, difficulty voiding or dysuria Musc: Denies: neck pain or back pain Skin/Breast: Denies: rash or pruritus Neuro: Denies: headache(s) or numbness in extremities Psych: Denies: anxiety or depression All/Imm: Denies: urticaria or throat swelling PFSH ED PFSH: Medical History Diverticulitis large intestine Hypertension Physical Exam Const: COMMON NORMALS: no acute distress, average body habitus and patient oriented x3 HENMT: COMMON NORMALS: normocephalic and atraumatic HEAD & SCALP: normocephalic and atraumatic Eye: COMMON NORMALS: Equal, round and reactive pupils present and EOMs intact bilaterally PUPIL: Yes Equal, round and reactive pupils present Neck/C-Spine: COMMON NORMALS: no JVD Resp: COMMON NORMALS: normal respiratory effort, No retractions, No use of accessory muscles and clear to auscultation bilaterally AUSCULTATION: clear to auscultation bilaterally Cardio: COMMON NORMALS: no JVD, regular rate and regular rhythm RATE: regular rate RHYTHM: regular rhythm GI: COMMON NORMALS: Soft to palpation INSPECTION: Yes normal to inspection PALPATION: Yes Soft to palpation and Yes Tenderness to palpation present (GI) Details: LLQ : COMMON NORMALS: Yes no CVA tenderness BLADDER/KIDNEY EXAM: Yes no CVA tenderness and No CVA tenderness Back/Pelvis: COMMON NORMALS: no CVA tenderness GENERAL BACK: No CVA tenderness Extremity: COMMON NORMALS: full ROM and capillary refill normal Neuro: COMMON NORMALS: patient oriented x3, moves all extremities and no focal motor deficits Psych: COMMON NORMALS: mental status grossly normal, Normal thought process present and cooperative THOUGHT PROCESS: Normal thought process present Course Vital Signs: Vital signs: Vital Signs Temperature 98.2 F 05/22/22 06:45 Pulse Rate 68 05/22/22 10:30 Respiratory Rate 15 05/22/22 10:30 Blood Pressure 110/74 05/22/22 10:30 Pulse Oximetry 90 05/22/22 10:00 Oxygen Delivery Me thod 05/22/22 10:30 MDM - Abdominal Pain Medical Decision Making Patient with diverticulitis and long segment colitis on CT. Discussed with Dr. Nesbitt. Patient has failed outpatient therapy. We will admit her and start her on Zosyn for IV antibiotics and surgical consultation for further management. Patient with negative lactate so unlikely to be ischemic. Patient stable upon admission Lab Data : 05/22/22 07:10 05/22/22 07:10 Labs/Radiology: Radiology Impressions Abdomen/Pelvis CT 05/22/22 06:52 IMPRESSION: 1. Wall thickening of the distal transverse, descending and proximal sigmoid colon with adjacent edema. There are colonic diverticula in this region, and diverticulitis is a consideration; however, given long segment involvement, colitis is favored. Infectious, inflammatory and ischemic causes should be considered. Consider CTA abdomen/pelvis to further assess. 2. The bladder wall is mildly prominent which may reflect underdistention. Correlate with urinalysis to assess for cystitis. 3. Cystic lesion in the right adnexa. Ovarian cysts are abnormal in postmenopausal patients. 4. Aneurysmal dilatation of the infrarenal abdominal aorta measuring 3.1 x 3.2 cm. There is no gross evidence of rupture. 5. Coronary arterial calcifications are noted. 6. 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 7. Mild retroperitoneal and right inguinal lymphadenopathy. COMMENTS: Consistent with the [employer]'s Incidental Findings Committee white paper (J Am Mireille Radiol 2018): Any incidental renal lesion less than 1 cm or classified as too small to characterize, or any incidental cystic renal lesion characterized as simple-appearing, is likely benign. No follow-up imaging is recommended for these lesions per consensus recommendations based on imaging criteria. ADDENDUM: 05/22/[id number] Herrera at 05/22/2022 8:40 AM CDT. Abdomen/Pelvis CTA 05/22/22 11:15 IMPRESSION: 1. An infrarenal abdominal aortic aneurysm measures 3.0 x 3.2 cm. There is no evidence of rupture or dissection. There is no evidence of ischemic colitis. 2. Colonic diverticulosis is noted. There is wall thickening involving the descending and proximal sigmoid colon with adjacent edema. Considerations include infectious or inflammatory colitis or, less likely, acute diverticulitis. No perforation. No abscess. There is mild free fluid. Consider nonemergent colonoscopy upon resolution of acute symptoms to exclude underlying mass lesion. 3. Mild retroperitoneal and right inguinal lymphadenopathy. 4. Cystic lesion in the right adnexa. Ovarian cysts are abnormal in postmenopausal patients. Recommend nonemergent pelvic ultrasound. 5. 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 Laboratory Results WBC 6.8 10^3/uL (4.0-10.0) 05/22/22 07:10 RBC 3.71 10^6/uL (4.1-5.3) L 05/22/22 07:10 Hgb 12.4 g/dL (11.5-15.3) 05/22/22 07:10 Hct 36.6 % (37.0-47.0) L 05/22/22 07:10 MCV 98.7 fl (81-99) 05/22/22 07:10 MCH 33.4 pg (28.0-34.0) 05/22/22 07:10 MCHC 33.9 g/dL (30.0-36.0) 05/22/22 07:10 RDW 13.0 % (12.1-15.1) 05/22/22 07:10 Plt Count 199 10^3/cmm (130-400) 05/22/22 07:10 MPV 12.1 fL (7.4-10.4) H 05/22/22 07:10 Neut % (Auto) 60.5 % 05/22/22 07:10 Lymph % (Auto) 28.3 % 05/22/22 07:10 [place] % (Auto) 9.4 % 05/22/22 07:10 Eos % (Auto) 1.3 % 05/22/22 07:10 Baso % (Auto) 0.4 % 05/22/22 07:10 Neut # (Auto) 4.09 10^3/uL (1.8-7.7) 05/22/22 07:10 Lymph # (Auto) 1.9 10^3/uL (0.8-4.8) 05/22/22 07:10 [place] # (Auto) 0.6 10^3/uL (0.2-0.9) 05/22/22 07:10 Eos # (Auto) 0.1 10^3/uL (0.0-0.8) 05/22/22 07:10 Baso # (Auto) 0.0 10^3/uL (0.0-0.1) 05/22/22 07:10 Nucleated RBC % (auto) 0 % 05/22/22 07:10 Nucleated RBCs # 0.0 /100WBC 05/22/22 07:10 Sodium 138 mmol/L (136-145) 05/22/22 07:10 Potassium 3.5 mmol/L (3.5-5.1) 05/22/22 07:10 Chloride 102 mmol/L (98-107) 05/22/22 07:10 Carbon Dioxide 25 mmol/L (22-29) 05/22/22 07:10 Anion Gap 14.5 (5-19) 05/22/22 07:10 BUN 11 mg/dL (8-23) 05/22/22 07:10 Creatinine 0.6 mg/dL (0.5-0.9) 05/22/22 07:10 GFR Calculation Not Reportable 05/22/22 07:10 Glucose 95 mg/dL (65-115) 05/22/22 07:10 Calculated Osmolality 285 mOsm/kg (285-295) 05/22/22 07:10 Lactate 0.8 mmol/L (0.5-2.2) 05/22/22 07:10 Calcium 8.9 mg/dL (8.5-10.5) 05/22/22 07:10 Total Bilirubin 0.6 mg/dL (0.15-1.2) 05/22/22 07:10 AST 9 U/L (0-32) 05/22/22 07:10 ALT < 5 U/L (0-33) 05/22/22 07:10 Alkaline Phosphatase 68 IU/L (35-105) 05/22/22 07:10 Total Protein 6.7 g/dL (6.6-8.7) 05/22/22 07:10 Albumin 3.5 g/dL (3.5-5.2) 05/22/22 07:10 Globulin 3.2 g/dL (1.3-4.6) 05/22/22 07:10 Urine Color Dark yellow (Yellow) 05/22/22 07:30 Urine Appearance Clear (CLEAR) 05/22/22 07:30 Urine pH 5 (5-7) 05/22/22 07:30 Ur Specific [place] 1.020 (1.005-1.030) 05/22/22 07:30 Urine Protein Neg (Negative) 05/22/22 07:30 Urine Glucose (UA) Norm (Normal) 05/22/22 07:30 Urine Ketones Negative (Negative) 05/22/22 07:30 Urine Blood 3+ (Negative) H 05/22/22 07:30 Urine Nitrate Negative (Negative) 05/22/22 07:30 Urine Bilirubin 1+ (Negative) H 05/22/22 07:30 Urine Urobilinogen 1 mg/dL (Negative) H 05/22/22 07:30 Ur Leukocyte Esterase Negative (Negative) 05/22/22 07:30 Urine RBC 10-15 /hpf (0-2) H 05/22/22 07:30 Urine WBC 0-4 /hpf (0-5) H 05/22/22 07:30 Ur Squamous Epith Cells 0-4 /hpf (0-5) H 05/22/22 07:30 Amorphous Sediment Not Reportable 05/22/22 07:30 Urine Bacteria 1+ /hpf (NONE) H 05/22/22 07:30 Urine Mucus 1+ /hpf 05/22/22 07:30 Discharge Plan Discharge Patient Disposition: Admitted As Inpatient Admit Provider: Yajaira Resendiz Clinical Impression: Diverticulitis Condition: Stable Coding Level of Care Code ED Professor Of Violin for Chg Fwd Exam Comprehensive
--- NOTE | 2022-05-22 06:52 | CTR_ITS ---
PROCEDURE INFORMATION: Exam: CT Abdomen And Pelvis Without Contrast Exam date and time: 05/22/2022 7:38 AM Age: 86 years old Clinical indication: Left lower quadrant abdominal pain. TECHNIQUE: Imaging protocol: Computed tomography of the abdomen and pelvis without contrast. Radiation optimization: All CT scans at this facility use at least one of these dose optimization techniques: automated exposure control; mA and/or kV adjustment per patient size (includes targeted exams where dose is matched to clinical indication); or iterative reconstruction. COMPARISON: CT abdomen pelvis wo con [id number] 03/18/2022 8:40 AM RADIATION DOSE METRICS: Total DLP (mGy-cm): 369.13 FINDINGS: Lungs: There is subsegmental atelectasis and/or scarring at the lung bases. Coronary arterial calcifications are noted. No pericardial effusion. No hiatal hernia. Pleural spaces: There is calcified pleural plaque at the lung bases suspicious for prior asbestos exposure. Liver: The liver is unremarkable. Gallbladder and bile ducts: The gallbladder is unremarkable. Pancreas: The pancreas is unremarkable. Spleen: The spleen is unremarkable. Adrenal glands: The adrenal glands are unremarkable. Kidneys and ureters: A simple right renal cyst measures 6.7 cm. No hydronephrosis. Stomach and bowel: The stomach and small bowel are unremarkable. There is wall thickening of the distal transverse, descending and proximal sigmoid colon with adjacent edema. There are colonic diverticula in this region, and diverticulitis is a consideration; however, given long segment involvement, colitis is favored. Infectious, inflammatory and ischemic causes should be considered. Consider CTA to further assess. Appendix: The appendix is not identified. Intraperitoneal space: No free intraperitoneal air is seen. Vasculature: There is aneurysmal dilatation of the infrarenal abdominal aorta measuring 3.1 x 3.2 cm. There is no gross evidence of rupture. Lymph nodes: A celiac axis lymph node measures 1.3 x 1.9 cm. A right inguinal lymph node measures 1.3 x 1.7 cm. Urinary bladder: The bladder wall is mildly prominent which may reflect underdistention. Correlate with urinalysis to assess for cystitis. Reproductive: Prior hysterectomy. There is a cystic lesion in the right adnexa measuring 1.6 cm. Bones/joints: No acute fracture is seen. Soft tissues: Prior umbilical hernia repair. CT/CT abdomen pelvis wo con [id number] IMPRESSION: 1. Wall thickening of the distal transverse, descending and proximal sigmoid colon with adjacent edema. There are colonic diverticula in this region, and diverticulitis is a consideration; however, given long segment involvement, colitis is favored. Infectious, inflammatory and ischemic causes should be considered. Consider CTA abdomen/pelvis to further assess. 2. The bladder wall is mildly prominent which may reflect underdistention. Correlate with urinalysis to assess for cystitis. 3. Cystic lesion in the right adnexa. Ovarian cysts are abnormal in postmenopausal patients. 4. Aneurysmal dilatation of the infrarenal abdominal aorta measuring 3.1 x 3.2 cm. There is no gross evidence of rupture. 5. Coronary arterial calcifications are noted. 6. 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 7. Mild retroperitoneal and right inguinal lymphadenopathy. COMMENTS: Consistent with the [employer]'s Incidental Findings Committee white paper (J Am Mireille Radiol 2018): Any incidental renal lesion less than 1 cm or classified as too small to characterize, or any incidental cystic renal lesion characterized as simple-appearing, is likely benign. No follow-up imaging is recommended for these lesions per consensus recommendations based on imaging criteria.
[2022-05-22] MEDS: ondansetron 2 mg/ML SDV 2 mL 4 MG IVP (07:10)
[2022-05-22 07:25] LABS: Basophils % 0.4 %; Eosinophils # 0.1 10^3/uL (0.0-0.8); Eosinophils % 1.3 %; Hematocrit 36.6 % (37.0-47.0); Hemoglobin 12.4 g/dL (11.5-15.3); Lymphocytes # 1.9 10^3/uL (0.8-4.8); Lymphocytes % 28.3 %; Mean Corpuscular HGB Conc 33.9 g/dL (30.0-36.0); Mean Corpuscular Hemoglobin 33.4 pg (28.0-34.0); Mean Corpuscular Volume 98.7 fl (81-99); Mean Platelet Volume 12.1 fL (7.4-10.4); Monocytes # 0.6 10^3/uL (0.2-0.9); Monocytes % 9.4 %; Neutrophils # 4.09 10^3/uL (1.8-7.7); Neutrophils % 60.5 %; Nucleated Red Blood Cells % 0 %; Platelet Count 199 10^3/cmm (130-400); Red Blood Count 3.71 10^6/uL (4.1-5.3); White Blood Count 6.8 10^3/uL (4.0-10.0)
[2022-05-22 07:37] LABS: Lactate (Lactic Acid level) 0.8 mmol/L (0.5-2.2)
[2022-05-22 07:46] LABS: Alanine Aminotransferase < 5 U/L (0-33); Albumin Level 3.5 g/dL (3.5-5.2); Alkaline Phosphatase 68 IU/L (35-105); Anion Gap 14.5 (5-19); Aspartate Amino Transferase 9 U/L (0-32); Blood Urea Nitrogen 11 mg/dL (8-23); Calcium 8.9 mg/dL (8.5-10.5); Carbon Dioxide 25 mmol/L (22-29); Chloride 102 mmol/L (98-107); Globulin 3.2 g/dL (1.3-4.6); Glucose 95 mg/dL (65-115); Osmolality Calculated 285 mOsm/kg (285-295); Potassium 3.5 mmol/L (3.5-5.1); Sodium 138 mmol/L (136-145); Total Bilirubin 0.6 mg/dL (0.15-1.2); Total Protein 6.7 g/dL (6.6-8.7)
[2022-05-22 07:54] LABS: Urine Appearance Clear (CLEAR); Urine Color Dark Yellow (Yellow); pH Urine 5 (5-7)
[2022-05-22 07:55] LABS: Add Urine Culture? Yes; Add Urine Microscopic? YES; Bacteria Urine 1+ /hpf; Bilirubin Urine 1+ (Negative); Blood Urine 3+ (Negative); Glucose Urine UA Norm (Normal); Ketones Urine Negative (Negative); Leukocyte Esterase Urine Negative (Negative); Mucus Urine 1+ /hpf; Nitrate Urine Negative (Negative); Protein Urine Neg (Negative); Squamous Epithelial Cell Urine 0-4 /hpf (0-5); Urobilinogen Urine 1 mg/dL (Negative); WBC Urine 0-4 /hpf (0-5)
[2022-05-22] MEDS: piperacillin-tazobactam 3.375 GM in sodium chloride 0.9% (plus) 50 ML IV ×2 (08:15→17:49)
--- NOTE | 2022-05-22 08:36 | P.HP_ITS ---
Providers/Chief Complaint Primary Care Provider: Adair Freed MD Chief Complaint: Abd pains History of Present Illness Lana Almendarez is a 86 year old female who was diagnosed with diverticulitis a month ago, she has finished antibiotic regimen, she was in her usual state of health until 24 hours ago when she started experiencing left lower quadrant pain, she has been experiencing dry heaves, no fever, her bowel last movement was yesterday. This time patient was concerned that this will get worse and decided to come to the ED for further evaluation. In the ED she was diagnosed with diverticulitis, CT abdomen pelvis did not show ischemic colitis, there is no abscess, currently she is being managed conservatively, Dr. Nesbitt has been consulted. I have evaluated the patient in the ER, her abdomen was not inproportionately tender to her underlying cause No sepsis, lactic acid is normal, no leukocytosis no fever She has received IV antibiotics Review of Systems Const: Reports: chills and body aches Eyes: Denies: change in vision ENMT: Denies: throat pain Card: Denies: chest pain Resp: Denies: dyspnea GI: Reports: abdominal pain and nausea : Denies: flank pain Musc: Denies: neck pain Skin/Breast: Denies: rash Neuro: Denies: headache(s) Psych: Denies: anxiety Endo: Denies: polyuria Jae/Lymph: Denies: easy bruising All/Imm: Denies: urticaria Medications/Allergies Home Medications Medication Instructions Recorded Confirmed Last Taken Type amlodipine 2.5 mg tablet 2.5 mg PO DAILY 03/15/22 05/22/22 05/22/22 History aspirin 81 mg capsule 81 mg PO DAILY 03/15/22 05/22/22 05/22/22 History cholecalciferol (vitamin D3) 25 25 mcg PO DAILY 03/15/22 05/22/22 05/22/22 History mcg (1,000 unit) capsule (Vitamin D3) garlic 500 mg capsule 500 mg PO DAILY 03/15/22 05/22/22 05/22/22 History lisinopril 20 mg tablet 20 mg PO DAILY 03/15/22 05/22/22 05/22/22 History lovastatin 20 mg tablet 20 mg PO DAILY 03/15/22 05/22/22 05/21/22 History lactulose 10 gram/15 mL oral 10 g (15 mL) PO DAILY PRN 05/27/22 07/31/22 Unknown Rx solution constipation #237 mL docusate sodium 100 mg capsule 100 mg PO DAILY 05/22/22 05/22/22 05/22/22 History (Stool Softener) Allergies Allergy/AdvReac Type Severity Reaction Status Date / Time contrast dye Allergy ALGY-Anaphy Uncoded 03/15/22 12:37 laxis PFSH Acute PFSH: Medical History Diverticulitis large intestine Hypertension Surgical History (Updated 05/22/22 @ 15:50 by Yajaira Resendiz MD) H/O umbilical hernia repair Family History (Updated 05/22/22 @ 15:50 by Yajaira Resendiz MD) Denies family history of CAD (coronary artery disease) Social History (Updated 05/22/22 @ 15:51 by Yajaira Resendiz MD) Smoking and tobacco status: never smoked Alcohol intake: never Substance/Drug Use: never Lives independently: Yes Vitals/I&O/Wt Last Vital Signs Temp 98.2 F 05/22/22 06:45 Pulse 59 L 05/22/22 08:00 Resp 15 05/22/22 08:00 BP 101/75 05/22/22 08:00 Pulse Ox 93 05/22/22 07:20 O2 Del Method 05/22/22 08:00 Weight last 48 hrs Weight 60.781 kg Physical Exam Narrative: Patient is laying supine Abdomen is soft no guarding rigidity however tenderness elicited on deep palpation left lower quadrant Pleasant cooperative Clinically looks dehydrated S1, S2 She also has systolic murmur Currently saturating well on room air Awake and alert Nonfocal neuro exam EOMI, PERRLA Data : 05/22/22 07:10 05/22/22 07:10 A&P Assessment and plan (1) Diverticulitis: Status: Acute (2) Abdominal pain: Status: Acute Plan Diverticulitis without abscess Patient is not septic No signs of ischemic colitis She will need colonoscopy after 2 to 3 weeks She is endorsing constipation No signs of bowel perforation Conservative management General surgery is consulted Continue IV fluids, IV antibiotics npo dnr dni discussed with the patient patient lives alone Attestations Medical Necessity Statement*: Anticipating more than 2 midnights for diverticulitis Time Spent in Patient Care: 35 Coding Level of Care Code Acute Supervisor Slashing Department for [facility] Fwd Diagnoses Diverticulitis K57.92 Abdominal pain R10.9
[2022-05-22] MEDS: morphine 4 mg/mL SDV 1 mL 2 MG IVP ×2 (08:56→21:17)
--- NOTE | 2022-05-22 11:15 | CTR_ITS ---
PROCEDURE INFORMATION: Exam: CTA Abdomen and Pelvis With Contrast Exam date and time: 05/22/2022 12:31 PM Age: 86 years old Clinical indication: Other: R/O ischemic colitis TECHNIQUE: Imaging protocol: Computed tomographic angiography of the abdomen and pelvis with contrast. 3D rendering (Not supervised by radiologist): MIP and/or 3D reconstructed images were created by the technologist. Radiation optimization: All CT scans at this facility use at least one of these dose optimization techniques: automated exposure control; mA and/or kV adjustment per patient size (includes targeted exams where dose is matched to clinical indication); or iterative reconstruction. 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 There is scarring and/or atelectasis at the lung bases. Heart: Coronary arterial calcifications are noted. No pericardial effusion. No hiatal hernia. Abdominal/pelvic arterial system: An infrarenal abdominal aortic aneurysm measures 3.0 x 3.2 cm. There is no evidence of rupture or dissection. The celiac and superior mesenteric arteries are adequately patent. The left hepatic artery arises directly from the aortic arch and appears patent. The renal arteries are adequately patent. The inferior mesenteric artery is adequately patent. The common iliac, internal iliac, external iliac, common femoral and proximal femoral arteries are adequately patent without significant narrowing, occlusion, aneurysm or dissection. Liver: The liver is unremarkable. Gallbladder and bile ducts: The gallbladder is unremarkable. Pancreas: The pancreas is unremarkable. Spleen: The spleen is unremarkable. Adrenal glands: The adrenal glands are unremarkable. Kidneys and ureters: Simple right renal cyst measuring 6.7 cm. Subcentimeter renal hypodensities are too small to accurately characterize and require no follow-up. Stomach and bowel: The stomach and small bowel are unremarkable. Colonic diverticulosis is noted. There is wall thickening involving the descending and proximal sigmoid colon with adjacent edema. Considerations include infectious or inflammatory colitis or, less likely, acute diverticulitis. No perforation. No abscess. There is mild free fluid. Consider nonemergent colonoscopy upon resolution of acute symptoms to exclude underlying mass lesion. Appendix: The appendix is unremarkable. Intraperitoneal space: No free intraperitoneal air. Lymph nodes: A celiac axis lymph node measures 1.3 x 2.3 cm. A right inguinal lymph node measures 1.0 x 1.4 cm. Urinary bladder: The bladder is unremarkable. Reproductive: Status post hysterectomy. Cystic lesion in the right adnexa measuring 1.9 cm. Bones/joints: No acute fracture is seen. Soft tissues: No significant subcutaneous soft tissue swelling. CT/CT angio abdomen pelvis 27977 IMPRESSION: 1. An infrarenal abdominal aortic aneurysm measures 3.0 x 3.2 cm. There is no evidence of rupture or dissection. There is no evidence of ischemic colitis. 2. Colonic diverticulosis is noted. There is wall thickening involving the descending and proximal sigmoid colon with adjacent edema. Considerations include infectious or inflammatory colitis or, less likely, acute diverticulitis. No perforation. No abscess. There is mild free fluid. Consider nonemergent colonoscopy upon resolution of acute symptoms to exclude underlying mass lesion. 3. Mild retroperitoneal and right inguinal lymphadenopathy. 4. Cystic lesion in the right adnexa. Ovarian cysts are abnormal in postmenopausal patients. Recommend nonemergent pelvic ultrasound. 5. 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
--- NOTE | 2022-05-22 12:05 | PM.CONSULT ---
Providers/Reason For Consult Consulting Physician/Specialty*: Dr. Gaetano Nesbitt, DO/General surgery Reason for Consult*: Abdominal pain Attending Physician: Yajaira Resendiz MD Primary Care Provider: Adair Freed MD History of Present Illness History of Present Illness Lana Almendarez is a 86 year old female who was recently treated for diverticulitis 2 months ago. She was treated at that time with a 14-day course of Cipro Flagyl. At that time she also had a 14 mm pericolonic abscess, however she never got a CT with contrast because she has an iodine allergy. She reports that she began having left lower quadrant abdominal pain yesterday along with nausea, dry heaves and chills. She denies any emesis or fever. The pain is sharp and constant and radiates to her back. Palpation makes pain worse. Nothing makes pain better. She is having normal bowel movements without hematochezia or melena. Noncontrast CT showed a long segment of inflammation in the left colon. Review of Systems General: Reports: 10 or more systems reviewed and unremarkable except in HPI and below Medications/Allergies Home Medications Medication Instructions Recorded Confirmed Last Taken Type amlodipine 2.5 mg tablet 2.5 mg PO DAILY 03/15/22 05/22/22 05/22/22 History aspirin 81 mg capsule 81 mg PO DAILY 03/15/22 05/22/22 05/22/22 History cholecalciferol (vitamin D3) 25 25 mcg PO DAILY 03/15/22 05/22/22 05/22/22 History mcg (1,000 unit) capsule (Vitamin D3) garlic 500 mg capsule 500 mg PO DAILY 03/15/22 05/22/22 05/22/22 History lisinopril 20 mg tablet 20 mg PO DAILY 03/15/22 05/22/22 05/22/22 History lovastatin 20 mg tablet 20 mg PO DAILY 03/15/22 05/22/22 05/21/22 History lactulose 10 gram/15 mL oral 10 g (15 mL) PO DAILY PRN 03/18/22 05/22/22 Unknown Rx solution constipation #237 mL docusate sodium 100 mg capsule 100 mg PO DAILY 05/22/22 05/22/22 05/22/22 History (Stool Softener) Allergies Allergy/AdvReac Type Severity Reaction Status Date / Time contrast dye Allergy ALGY-Anaphy Uncoded 03/15/22 12:37 laxis PFSH Acute PFSH: Medical History Diverticulitis large intestine Hypertension Vitals/I&O/Wt Last Vital Signs Temp 98.2 F 05/22/22 06:45 Pulse 68 05/22/22 10:30 Resp 15 05/22/22 10:30 BP 110/74 05/22/22 10:30 Pulse Ox 90 05/22/22 10:00 O2 Del Method 05/22/22 10:30 Weight last 48 hrs Weight 134 lb Physical Exam Narrative: General : Patient is well developed , no acute distress, oriented x3 Head : Normal cephalic, a-traumatic. Ears : Pinnae and external canal are normal. Hearing is normal. Eyes : PERRLA, Sclera and injection are normal. No conjunctival discharge. Nose : Mucous membranes are without erythema. Throat : buccal mucosa is normal, gums are without significant recession or hypertrophy. Lungs : Equal chest rise bilaterally, no use of accessory muscles, trachea is midline. Cor : Rate and rhythm are normal. Abdomen : Soft, ND, tender to palpation left lower quadrant, no g/r/m Extremities : No edema, no cyanosis or clubbing, dorsalis pedis pulses are present bilaterally, non-tender to palpation of calves. Upper extremities are normal bilaterally. Back : non-tender to palpation, no CVA tenderness. Neuro : CN II - XII intact, Upper and lower extremities have equal and full strength Data : 05/22/22 07:10 05/22/22 07:10 A&P Assessment and plan (1) Abdominal pain: Status: Acute Plan I suspect this is recurrent diverticulitis, however cannot rule out other forms of colitis. We will get a CTA of the abdomen and pelvis with premedication for her iodine allergy. I have already spoken to the hospitalist. N.p.o. for now. Continue Zosyn and IV fluids. Daily labs. We will follow Coding Level of Care Code Acute Refrigeration Engineer for [facility] Diagnoses Abdominal pain R10.9
[2022-05-22] MEDS: diphenhydrAMINE 50 mg/mL SDV 1mL 25 MG IVP (12:15)
[2022-05-22] MEDS: iohexol 350 mg/mL 100 mL Btl IV (12:48)
[2022-05-22] MEDS: dextrose 5%-sod chloride 0.45% 1,000 ML 30 ML IV (15:36)
--- NOTE | 2022-05-22 18:30 | PC.NURSE ---
integrated waste created on pt, did not administer morphine. called and notified carleen in pharmacy. med given to carleen.
[2022-05-23] MEDS: piperacillin-tazobactam 3.375 GM in sodium chloride 0.9% (plus) 50 ML IV ×4 (00:14→23:56)
[2022-05-23 04:00] VITALS: BP 112/71; PULSE 64; RESP 15; TEMP 36.4; O2SAT 91
[2022-05-23 05:11] LABS: Hematocrit 35.9 % (37.0-47.0); Hemoglobin 11.5 g/dL (11.5-15.3); Lymphocytes # 0.9 10^3/uL (0.8-4.8); Mean Corpuscular Hemoglobin 32.6 pg (28.0-34.0); Mean Corpuscular Volume 101.7 fl (81-99); Mean Platelet Volume 11.6 fL (7.4-10.4); Monocytes # 0.2 10^3/uL (0.2-0.9); Monocytes % 3.4 %; Neutrophils % 75.4 %; Nucleated Red Blood Cells % 0 %; Platelet Count 211 10^3/cmm (130-400); Red Blood Count 3.53 10^6/uL (4.1-5.3); Red Cell Distribution Width 12.9 % (12.1-15.1); White Blood Count 4.4 10^3/uL (4.0-10.0)
[2022-05-23 05:35] LABS: Blood Urea Nitrogen 16 mg/dL (8-23); Calcium 8.8 mg/dL (8.5-10.5); Carbon Dioxide 20 mmol/L (22-29); Chloride 105 mmol/L (98-107); Glucose 124 mg/dL (65-115); Magnesium 2.1 mg/dL (1.7-2.3); Osmolality Calculated 289 mOsm/kg (285-295); Potassium 4.2 mmol/L (3.5-5.1); Sodium 138 mmol/L (136-145)
[2022-05-23 05:36] LABS: Anion Gap 17.2 (5-19)
[2022-05-23 07:32] VITALS: BP 116/74; PULSE 56; RESP 16; TEMP 36.6; O2SAT 91
[2022-05-23 10:28] VITALS: PULSE 78; RESP 16; O2SAT 93
--- NOTE | 2022-05-23 10:39 | P.PN_ITS ---
Subjective Subjective: Patient is clinically doing better abdominal pain has subsided She is feeling hungry, discontinue IV fluids, advance diet to clear liquids Will touch base with Dr. Nesbitt Continue Zosyn for now Might be able to go home tomorrow if able to tolerate GI soft by dinnertime patient is endorsing feeling better, no active nausea, vomiting or diarrhea, Vitals/I&O/Wt Last Vital Signs Temp 97.9 F 05/23/22 07:32 Pulse 78 05/23/22 10:28 Resp 16 05/23/22 10:28 BP 116/74 05/23/22 07:32 Pulse Ox 93 05/23/22 10:28 O2 Del Method 05/23/22 10:28 05/22/22 05/23/22 05/23/22 22:59 06:59 14:59 Intake Total 50 / 100 50 / 150 Balance 50 / 100 50 / 150 Weight last 48 hrs Weight 60.101 kg Weight 60.781 kg Physical Exam Narrative: Clinical signs of dehydration S1, S2 systolic murmur No active emesis Awake and alert Abdomen is soft Nonfocal neuro exam Saturating well on room air Data : 05/23/22 04:26 05/23/22 04:36 Micro: Microbiology 05/22/22 07:30 Urine Culture - Preliminary Urine,Clean Catch A&P Assessment and plan (1) Abdominal pain: Status: Acute (2) Diverticulitis: Status: Acute Plan Diverticulitis without complications No signs of abscess Afebrile Cultures negative Continue Zosyn for 1 more day Plan to discharge her tomorrow if she is able to tolerate diet Outpatient colonoscopy DNR/DNI DVT prophylaxis on board Attestations Medical Necessity Statement*: ya caban Time Spent in Patient Care: 30 Coding Level of Care Code Acute Procurement Agent for [facility] Fwd Diagnoses Abdominal pain R10.9 Diverticulitis K57.92
[2022-05-23] MEDS: enoxaparin 30 mg/0.3 mL Syringe SUBCUT (11:54)
[2022-05-23 12:00] VITALS: BP 109/70; PULSE 62; RESP 16; TEMP 36.6; O2SAT 91
[2022-05-23 16:00] VITALS: BP 108/69; PULSE 65; RESP 16; TEMP 36.8; O2SAT 93
--- NOTE | 2022-05-23 16:19 | PM.PN ---
Subjective Subjective: Patient reports that her pain has improved since yesterday. She has not had a bowel movement since yesterday morning. Denies any nausea or vomiting Vitals/I&O/Wt Last Vital Signs Temp 97.9 F 05/23/22 12:00 Pulse 62 05/23/22 12:00 Resp 16 05/23/22 12:00 BP 109/70 05/23/22 12:00 Pulse Ox 91 05/23/22 12:00 O2 Del Method 05/23/22 12:00 05/23/22 05/23/22 05/23/22 06:59 14:59 22:59 Intake Total 50 / 150 530 / 530 Balance 50 / 150 530 / 530 Weight last 48 hrs Weight 132 lb 8 oz Weight 134 lb Physical Exam Narrative: General no acute distress, awake alert and oriented x3 Abdomen soft nondistended tender to palpation left hemiabdomen no guarding rebound or masses Data : 05/23/22 04:26 05/23/22 04:36 Micro: Microbiology 05/22/22 07:30 Urine Culture - Preliminary Urine,Clean Catch A&P Assessment and plan (1) Colitis: Status: Acute Plan She has a long fracture of colitis in the left colon. This is not consistent with recurrent diverticulitis. Antibiotics Clear liquids Stool studies Will follow Attestations Medical Necessity Statement*: Patient requires at least 1 more night in the hospital for IV antibiotics, diet management and stool study retrieval Coding Level of Care Code Acute Medical Referral Coordinator for [facility] Diagnoses Colitis K52.9
[2022-05-23 20:00] VITALS: BP 117/73; PULSE 62; PULSE 68; RESP 16; RESP 18; TEMP 36.7; O2SAT 93; O2SAT 94
[2022-05-24] VITALS: BP 108/69; PULSE 67; RESP 16; TEMP 36.4; O2SAT 95
[2022-05-24 04:00] VITALS: BP 115/71; PULSE 55; RESP 16; TEMP 36.6; O2SAT 92
[2022-05-24 05:24] LABS: Basophils % 0.5 %; Eosinophils % 0.5 %; Hematocrit 34.7 % (37.0-47.0); Hemoglobin 11.2 g/dL (11.5-15.3); Lymphocytes # 3.1 10^3/uL (0.8-4.8); Lymphocytes % 42.4 %; Mean Corpuscular HGB Conc 32.3 g/dL (30.0-36.0); Mean Corpuscular Hemoglobin 32.5 pg (28.0-34.0); Mean Corpuscular Volume 100.6 fl (81-99); Mean Platelet Volume 11.9 fL (7.4-10.4); Monocytes # 0.5 10^3/uL (0.2-0.9); Monocytes % 7.3 %; Neutrophils # 3.59 10^3/uL (1.8-7.7); Neutrophils % 49.2 %; Nucleated Red Blood Cells % 0 %; Platelet Count 213 10^3/cmm (130-400); Red Blood Count 3.45 10^6/uL (4.1-5.3); Red Cell Distribution Width 13.1 % (12.1-15.1); White Blood Count 7.3 10^3/uL (4.0-10.0)
[2022-05-24 05:43] LABS: Anion Gap 14.7 (5-19); Blood Urea Nitrogen 19 mg/dL (8-23); Calcium 8.3 mg/dL (8.5-10.5); Carbon Dioxide 24 mmol/L (22-29); Chloride 103 mmol/L (98-107); Glucose 82 mg/dL (65-115); Osmolality Calculated 287 mOsm/kg (285-295); Potassium 3.7 mmol/L (3.5-5.1); Sodium 138 mmol/L (136-145)
[2022-05-24 07:41] VITALS: BP 132/76; PULSE 57; RESP 16; TEMP 36.4; O2SAT 92
[2022-05-24 08:00] VITALS: PULSE 76; RESP 16; O2SAT 98
--- NOTE | 2022-05-24 08:20 | PM.PN ---
Subjective Subjective: Patient's pain has subsided and she is tolerating a soft diet. She still has not had a bowel movement. Vitals/I&O/Wt Last Vital Signs Temp 97.6 F 05/24/22 07:41 Pulse 57 L 05/24/22 07:41 Resp 16 05/24/22 07:41 BP 132/76 05/24/22 07:41 Pulse Ox 92 05/24/22 07:41 O2 Del Method 05/24/22 07:41 05/23/22 05/24/22 05/24/22 22:59 06:59 14:59 Intake Total 110 / 640 50 / 690 Balance 110 / 640 50 / 690 Weight last 48 hrs Weight 132 lb 8 oz Physical Exam Narrative: General no acute distress, awake alert and oriented x3 Abdomen soft nondistended, nontender, no guarding rebound or masses Data : 05/24/22 04:49 05/24/22 04:49 Micro: Microbiology 05/22/22 07:30 Urine Culture - Preliminary Urine,Clean Catch A&P Assessment and plan (1) Colitis: Status: Acute Plan She has a long fracture of colitis in the left colon. This is not consistent with recurrent diverticulitis. Hopefully we can get a stool sample before she goes home today. Otherwise complete a 14-day course of Augmentin at home. 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
[2022-05-24] MEDS: piperacillin-tazobactam 3.375 GM in sodium chloride 0.9% (plus) 50 ML IV (10:05)
[2022-05-24] MEDS: enoxaparin 30 mg/0.3 mL Syringe SUBCUT (10:53)
[2022-05-24 11:41] VITALS: BP 148/73; PULSE 65; RESP 18; TEMP 36.6; O2SAT 95
--- NOTE | 2022-05-24 11:49 | PM.DCS ---
Discharge Providers Date of Admission: 05/22/22 08:05 Date of Discharge: May 24, 2022 Attending Provider at Admission: Yajaira Resendiz MD Attending Provider at Discharge: Yajaira Resendiz MD Primary Care Provider: Adair Freed MD Diagnoses at Discharge Discharge Diagnosis (1) Colitis: Status: Acute Reason for Visit Reason for Visit: Abd pains Hospital Course Hospital Course 86-year female who was admitted for chief complaint of worsening left lower quadrant pain, initially there was concern for diverticulitis with microabscess, considering recurrent diverticulitis related pain, general surgery recommended CTA abdomen pelvis to rule out ischemic colitis, there were no signs of microperforation or abscess, no signs of ischemic colitis, she never had leukocytosis or abnormal lactic acid. She was managed conservatively which improved her symptoms. She was able to tolerate her diet next day. On 05/24 she is afebrile, no leukocytosis, tolerated GI soft diet, she will be discharged home with referral to see Dr. Jeffery after 2 months for colonoscopy. Her presentation was consistent with colitis instead of diverticulitis. I am prescribing her 14-day course of Augmentin. Etiology of colitis is unknown. Patient could not give us a stool sample, she never had any loose stools during hospitalization. She does not want to stay in the hospital longer to wait for her BM. Physical Exam Narrative: Clinical signs of dehydration improved S1, S2 systolic murmur, grade 2/6 No active emesis Awake and alert Abdomen is soft Nonfocal neuro exam Saturating well on room air ? Discharge Data Studies Completed and Pending Completed Studies During Hospitalization Category Date Time Status CT abdomen pelvis wo con [id number] Urgent Cat Scan 05/22/22 06:52 Completed CTA abdomen pelvis [CT angio abdomen pelvis [id number]] Cat Scan 05/22/22 11:15 Completed Urgent Pending at discharge Category Date Time Status CDIFF [Clostridioides Difficile PCR] Stat Lab 05/23/22 16:13 Uncollected Stool Culture, Bacterial [Enteric Bacterial Panel by Lab 05/23/22 16:13 Uncollected PCR] Stat Radiology Impressions Abdomen/Pelvis CT 05/22/22 06:52 IMPRESSION: 1. Wall thickening of the distal transverse, descending and proximal sigmoid colon with adjacent edema. There are colonic diverticula in this region, and diverticulitis is a consideration; however, given long segment involvement, colitis is favored. Infectious, inflammatory and ischemic causes should be considered. Consider CTA abdomen/pelvis to further assess. 2. The bladder wall is mildly prominent which may reflect underdistention. Correlate with urinalysis to assess for cystitis. 3. Cystic lesion in the right adnexa. Ovarian cysts are abnormal in postmenopausal patients. 4. Aneurysmal dilatation of the infrarenal abdominal aorta measuring 3.1 x 3.2 cm. There is no gross evidence of rupture. 5. Coronary arterial calcifications are noted. 6. 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 7. Mild retroperitoneal and right inguinal lymphadenopathy. COMMENTS: Consistent with the [place]'s Incidental Findings Committee white paper (J Am Mireille Radiol 2018): Any incidental renal lesion less than 1 cm or classified as too small to characterize, or any incidental cystic renal lesion characterized as simple-appearing, is likely benign. No follow-up imaging is recommended for these lesions per consensus recommendations based on imaging criteria. ADDENDUM: 05/22/[address] Herrera at 05/22/2022 8:40 AM CDT. Abdomen/Pelvis CTA 05/22/22 11:15 IMPRESSION: 1. An infrarenal abdominal aortic aneurysm measures 3.0 x 3.2 cm. There is no evidence of rupture or dissection. There is no evidence of ischemic colitis. 2. Colonic diverticulosis is noted. There is wall thickening involving the descending and proximal sigmoid colon with adjacent edema. Considerations include infectious or inflammatory colitis or, less likely, acute diverticulitis. No perforation. No abscess. There is mild free fluid. Consider nonemergent colonoscopy upon resolution of acute symptoms to exclude underlying mass lesion. 3. Mild retroperitoneal and right inguinal lymphadenopathy. 4. Cystic lesion in the right adnexa. Ovarian cysts are abnormal in postmenopausal patients. Recommend nonemergent pelvic ultrasound. 5. 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 Laboratory Results WBC 7.3 10^3/uL (4.0-10.0) 05/24/22 04:49 RBC 3.45 10^6/uL (4.1-5.3) L 05/24/22 04:49 Hgb 11.2 g/dL (11.5-15.3) L 05/24/22 04:49 Hct 34.7 % (37.0-47.0) L 05/24/22 04:49 MCV 100.6 fl (81-99) H 05/24/22 04:49 MCH 32.5 pg (28.0-34.0) 05/24/22 04:49 MCHC 32.3 g/dL (30.0-36.0) 05/24/22 04:49 RDW 13.1 % (12.1-15.1) 05/24/22 04:49 Plt Count 213 10^3/cmm (130-400) 05/24/22 04:49 MPV 11.9 fL (7.4-10.4) H 05/24/22 04:49 Neut % (Auto) 49.2 % 05/24/22 04:49 Lymph % (Auto) 42.4 % 05/24/22 04:49 [place] % (Auto) 7.3 % 05/24/22 04:49 Eos % (Auto) 0.5 % 05/24/22 04:49 Baso % (Auto) 0.5 % 05/24/22 04:49 Neut # (Auto) 3.59 10^3/uL (1.8-7.7) 05/24/22 04:49 Lymph # (Auto) 3.1 10^3/uL (0.8-4.8) 05/24/22 04:49 [place] # (Auto) 0.5 10^3/uL (0.2-0.9) 05/24/22 04:49 Eos # (Auto) 0.0 10^3/uL (0.0-0.8) 05/24/22 04:49 Baso # (Auto) 0.0 10^3/uL (0.0-0.1) 05/24/22 04:49 Nucleated RBC % (auto) 0 % 05/24/22 04:49 Nucleated RBCs # 0.0 /100WBC 05/24/22 04:49 Sodium 138 mmol/L (136-145) 05/24/22 04:49 Potassium 3.7 mmol/L (3.5-5.1) 05/24/22 04:49 Chloride 103 mmol/L (98-107) 05/24/22 04:49 Carbon Dioxide 24 mmol/L (22-29) 05/24/22 04:49 Anion Gap 14.7 (5-19) 05/24/22 04:49 BUN 19 mg/dL (8-23) 05/24/22 04:49 Creatinine 0.7 mg/dL (0.5-0.9) 05/24/22 04:49 GFR Calculation Not Reportable 05/24/22 04:49 Glucose 82 mg/dL (65-115) 05/24/22 04:49 Calculated Osmolality 287 mOsm/kg (285-295) 05/24/22 04:49 Lactate 0.8 mmol/L (0.5-2.2) 05/22/22 07:10 Calcium 8.3 mg/dL (8.5-10.5) L 05/24/22 04:49 Magnesium 2.1 mg/dL (1.7-2.3) 05/23/22 04:36 Total Bilirubin 0.6 mg/dL (0.15-1.2) 05/22/22 07:10 AST 9 U/L (0-32) 05/22/22 07:10 ALT < 5 U/L (0-33) 05/22/22 07:10 Alkaline Phosphatase 68 IU/L (35-105) 05/22/22 07:10 C-Reactive Protein 48.0 mg/L (0.0-4.9) H 05/23/22 04:36 Total Protein 6.7 g/dL (6.6-8.7) 05/22/22 07:10 Albumin 3.5 g/dL (3.5-5.2) 05/22/22 07:10 Globulin 3.2 g/dL (1.3-4.6) 05/22/22 07:10 Urine Color Dark yellow (Yellow) 05/22/22 07:30 Urine Appearance Clear (CLEAR) 05/22/22 07:30 Urine pH 5 (5-7) 05/22/22 07:30 Ur Specific [place] 1.020 (1.005-1.030) 05/22/22 07:30 Urine Protein Neg (Negative) 05/22/22 07:30 Urine Glucose (UA) Norm (Normal) 05/22/22 07:30 Urine Ketones Negative (Negative) 05/22/22 07:30 Urine Blood 3+ (Negative) H 05/22/22 07:30 Urine Nitrate Negative (Negative) 05/22/22 07:30 Urine Bilirubin 1+ (Negative) H 05/22/22 07:30 Urine Urobilinogen 1 mg/dL (Negative) H 05/22/22 07:30 Ur Leukocyte Esterase Negative (Negative) 05/22/22 07:30 Urine RBC 10-15 /hpf (0-2) H 05/22/22 07:30 Urine WBC 0-4 /hpf (0-5) H 05/22/22 07:30 Ur Squamous Epith Cells 0-4 /hpf (0-5) H 05/22/22 07:30 Amorphous Sediment Not Reportable 05/22/22 07:30 Urine Bacteria 1+ /hpf (NONE) H 05/22/22 07:30 Urine Mucus 1+ /hpf 05/22/22 07:30 Vitals Last Vital Signs Temp 97.8 F 05/24/22 11:41 Pulse 65 05/24/22 11:41 Resp 18 05/24/22 11:41 BP 148/73 05/24/22 11:41 Pulse Ox 95 05/24/22 11:41 O2 Del Method 05/24/22 11:41 Discharge Plan Discharge Patient Disposition: Home Condition: Stable Prescriptions: New Augmentin 500-125 mg tablet 1 tab PO BID Qty: 28 0RF Continued lisinopril 20 mg tablet 20 mg PO DAILY amlodipine 2.5 mg tablet 2.5 mg PO DAILY garlic 500 mg Capsule 500 mg PO DAILY lovastatin 20 mg tablet 20 mg PO DAILY cholecalciferol (vitamin D3) [Vitamin D3] 25 mcg (1,000 unit) Capsule 25 mcg PO DAILY aspirin 81 mg Capsule 81 mg PO DAILY lactulose 10 gram/15 mL solution 10 g PO DAILY PRN (Reason: constipation) Qty: 237 0RF Stool Softener 100 mg Capsule 100 mg PO DAILY Discharge Orders: Discharge Order (Routine); Ordered 05/24/22 Ordered By: Yajaira Resendiz Referrals: Gaetano Nesbitt DO [Physician] - 07/26/22 9:35 am Adair Freed MD [Primary Care Provider] - 05/31/22 10:30 am Discharge Diet: GI Soft Patient Instructions: Amoxicillin/Clavulanate Potassium (By mouth), Diverticulitis (GEN), Opioid Safety Discharge Attestations Time Spent in Discharge Care*: less than 30 min Quality Metrics Clinical Quality Measures [ No reported AMI, CVA or VTE this stay] Coding Level of Care Code Acute Chg FW DC note Diagnoses Colitis K52.9
--- NOTE | 2022-05-24 12:12 | PC.NURSE ---
Pt verbally acknowledges discharge plan. All questions answered.
[2022-05-24 12:13] VITALS: BP 148/73; PULSE 65; RESP 18; TEMP 36.6; O2SAT 95
== END 2022-05-24 12:44 | disposition home or self-care (01) ==
LOC: ER 08:05 → MEDSURG 12:35
PROVIDERS: Admitting Provider Internal Medicine; Emergency Provider Student in an Organized Health Care Education/Training Program; PCP Family Medicine; Visit Provider Internal Medicine
DX: K52.9 Noninfective gastroenteritis and colitis, unspecified (principal); K57.92 Diverticulitis of intestine, part unspecified, without perforation or abscess without bleeding
CPT/HCPCS: 36415; 74174; 74176; 80048; 80053; 81001; 83605; 83735; 85025; 86140; 87086; 96365; 96372; 96375; 99285; G0378; J1200; J1650; J2270; J2405; J2543; J2920; J7799; Q9967

== ENCOUNTER 2022-06-12 07:55 | Inpatient (IN) | payer MEDICARE, MEDICAID, SELFPAY ==
[2022-06-12] VITALS (76 sets, daily range): BP systolic 65–111; BP diastolic 40–69; PULSE 72–154; RESP 15–40; TEMP 36.8; O2SAT 71–100; BMI 22.6
--- NOTE | 2022-06-12 08:13 | ECG_ITS ---
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 Measurements Intervals [place] Rate: 170 P: [place]: QRS: 54 QRSD: 84 T: 268 QT: 225 QTc: 379 Interpretive Statements ATRIAL FLUTTER WITH RAPID VENTRICULAR RESPONSE ST DEVIATION AND MODERATE T-WAVE ABNORMALITY, CONSIDER INFERIOR ISCHEMIA [-0.1+ mV T-WAVE IN II/aVF] CRITICAL TEST RESULT No previous ECG available for comparison Electronically Signed On 06-14-2022 7:22:30 CDT by Luz Lowe M.D. [id number]
[2022-06-12] MEDS: dilTIAZem 5 mg/mL SDV 5 mL IVP ×2 (08:30→08:37)
[2022-06-12 08:34] LABS: Basophils # 0.1 10^3/uL (0.0-0.1); Basophils % 1.2 %; Eosinophils % 0.2 %; Hematocrit 47.8 % (37.0-47.0); Hemoglobin 15.6 g/dL (11.5-15.3); Lymphocytes # 1.2 10^3/uL (0.8-4.8); Lymphocytes % 19.6 %; Mean Corpuscular HGB Conc 32.6 g/dL (30.0-36.0); Mean Corpuscular Hemoglobin 32.6 pg (28.0-34.0); Mean Platelet Volume 11.9 fL (7.4-10.4); Monocytes # 0.8 10^3/uL (0.2-0.9); Monocytes % 13.2 %; Neutrophils # 3.95 10^3/uL (1.8-7.7); Neutrophils % 65.1 %; Nucleated Red Blood Cells % 0 %; Platelet Count 225 10^3/cmm (130-400); Red Blood Count 4.78 10^6/uL (4.1-5.3); Red Cell Distribution Width 14.4 % (12.1-15.1); White Blood Count 6.1 10^3/uL (4.0-10.0)
[2022-06-12] MEDS: ondansetron 2 mg/ML SDV 2 mL 8 MG IVP (08:37)
[2022-06-12] MEDS: sodium chloride 0.9% 500 ML IV ×2 (08:37→09:10)
--- NOTE | 2022-06-12 08:44 | W.ED.WEAKNES ---
HPI - Weakness General: Chief complaint: Weakness Stated complaint: WEAKNESS; DIARRHEA Time Seen by Provider: 06/12/22 08:03 History of Present Illness: 86-year-old female presenting today with prolonged downtime. Patient was noted to have probably fallen approximately 3 days ago. Was found laying on the ground of her apartment. Patient notes that she has had severe diarrhea. Since being started on an antibiotic for intra-abdominal infection. She notes that anytime she moves or does anything she has had diarrhea. This is resulted in progressive and worsening weakness. She denies fevers or chills. She notes nausea without vomiting. She denies abdominal pain. She denies dysuria or polyuria. She notes she did not strike her head. She is on 81 mg aspirin. Otherwise no blood thinners. She notes she was too weak to call for help or move anywhere. Review of Systems General: Reports: 10 or more systems reviewed and unremarkable except in HPI and below PFSH ED PFSH: Medical History (Updated 06/12/22 @ 10:19 by Chavez Bales DO) Abdominal pain Colitis Diverticulitis Diverticulitis large intestine Hypertension Surgical History (Updated 05/22/22 @ 15:50 by Yajaira Resendiz MD) H/O umbilical hernia repair Family History (Updated 05/22/22 @ 15:50 by Yajaira Resendiz MD) Denies family history of CAD (coronary artery disease) Social History (Updated 05/22/22 @ 15:51 by Yajaira Resendiz MD) Smoking and tobacco status: never smoked Alcohol intake: never Lives independently: Yes Physical Exam Const: COMMON NORMALS: no acute distress, patient oriented x3 and alert GENERAL APPEARANCE: cooperative ORIENTATION/CONSCIOUSNESS: Yes awake, Yes oriented to person, Yes oriented to place and Yes oriented to time HENMT: COMMON NORMALS: normocephalic, atraumatic, external ears normal, Normal external nose present and moist oral mucous membranes HEAD & SCALP: normal to inspection, normocephalic and atraumatic NOSE: Normal external nose present GENERAL EAR: hearing grossly impaired EXTERNAL EAR: Yes external ears normal MOUTH: Normal oral and palatal mucosa present (Cracked and dried oral mucosa.) Eye: COMMON NORMALS: Equal, round and reactive pupils present, EOMs intact bilaterally, conjunctivae normal and no scleral icterus GENERAL EYE: appearance normal, both eyes and all related structures EYELID: eyelids normal CONJUNCTIVA: Yes conjunctivae normal SCLERA: sclerae normal PUPIL: Yes Equal, round and reactive pupils present Neck/C-Spine: COMMON NORMALS: full ROM, supple and no JVD GENERAL: Yes normal visual inspection Lymph: LYMPHATIC: no lymphadenopathy noted and no lymphedema noted Chest: COMMONS NORMALS: normal inspection of the chest Resp: COMMON NORMALS: normal respiratory effort, No retractions and No use of accessory muscles Cardio: COMMON NORMALS: no JVD, regular rate and regular rhythm RATE: regular rate RHYTHM: regular rhythm GI: COMMON NORMALS: Normal to inspection, nondistended, normoactive bowel sounds present : COMMON NORMALS: Yes no CVA tenderness BLADDER/KIDNEY EXAM: Yes no CVA tenderness Back/Pelvis: COMMON NORMALS: no CVA tenderness and thoracic and lumbar spine normal to inspection Extremity: COMMON NORMALS: normal to inspection, full ROM and capillary refill normal GENERAL: Yes normal exam except as noted Neuro: COMMON NORMALS: patient oriented x3, CN's II-XII intact bilaterally, moves all extremities, no focal motor deficits, no sensory deficits noted and gait normal SENSORIUM/ORIENTATION: Yes alert, Yes oriented to person, Yes oriented to place and Yes oriented to time Psych: COMMON NORMALS: mental status grossly normal, Normal thought process present, cooperative and normal affect THOUGHT PROCESS: Normal thought process present Skin: COMMON NORMALS: no rashes or lesions noted and no wounds GENERAL SKIN EXAM: no rashes or lesions noted Course Vital Signs: Vital signs: Vital Signs Temperature 98.2 F 06/12/22 08:02 Pulse Rate 149 H 06/12/22 09:12 Respiratory Rate 26 H 06/12/22 09:12 Blood Pressure 78/58 06/12/22 09:12 Pulse Oximetry 98 06/12/22 09:12 Oxygen Delivery Me thod 06/12/22 09:12 Oxygen Flow Rate 3 06/12/22 08:49 MDM - Weakness Medical Decision Making 86-year-old female presenting today with rapid heart rate and significant weakness. EKG demonstrating atrial flutter with rapid ventricular response in the 170s. Patient was given 500 bolus normal saline. 10 mg of IV diltiazem with improvement in the 150s to 130s. Patient with significant clinical dehydration. We will continue to rehydrate patient to obtain control of heart rate. Despite aggressive rehydration, diltiazem. Patient still hypotensive with rapid heart rate. Discussed risks and benefits of cardioversion with patient. Noting risk of stroke, continued abnormal rhythm, fatal arrhythmia. Patient consented to procedure. Synchronized cardioversion was performed using 200 J. Patient with improvement in heart rate into the 110s. Still with atrial fibrillation. Patient bolused 1 L normal saline. Significant elevation in patient's lactic acid. Significant elevation patient's troponin. Troponin elevation likely secondary to demand ischemia. EKG is nonischemic in nature. Still patient started on p.o. aspirin. Additional bolus normal saline given. CT with question of perforated diverticulitis. Spoke to Dr. Nesbitt who recommended NG tube Zosyn and admission to the hospital. They will consult. Patient will be admitted for severe dehydration, weakness, diarrhea. Lab Data : 06/12/22 08:26 06/12/22 09:20 Radiology Impressions Abdomen/Pelvis CT 06/12/22 09:06 IMPRESSION: Imaging findings of acute sigmoid diverticulitis with small wall abscess versus contained perforation proximally, resulting in dilatation of the colon proximally with scattered air-fluid levels. COMMENTS: Consistent with the [place] [employer]'s Incidental Findings Committee white paper (J Am Mireille Radiol 2018): Any incidental renal lesion less than 1 cm or classified as too small to characterize, or any incidental cystic renal lesion characterized as simple-appearing, is likely benign. No follow-up imaging is recommended for these lesions per consensus recommendations based on imaging criteria. Laboratory Results WBC 6.1 10^3/uL (4.0-10.0) 06/12/22 08:26 RBC 4.78 10^6/uL (4.1-5.3) 06/12/22 08:26 Hgb 15.6 g/dL (11.5-15.3) H 06/12/22 08:26 Hct 47.8 % (37.0-47.0) H 06/12/22 08:26 MCV 100.0 fl (81-99) H 06/12/22 08:26 MCH 32.6 pg (28.0-34.0) 06/12/22 08:26 MCHC 32.6 g/dL (30.0-36.0) 06/12/22 08:26 RDW 14.4 % (12.1-15.1) 06/12/22 08:26 Plt Count 225 10^3/cmm (130-400) 06/12/22 08:26 MPV 11.9 fL (7.4-10.4) H 06/12/22 08:26 Neut % (Auto) 65.1 % 06/12/22 08:26 Lymph % (Auto) 19.6 % 06/12/22 08:26 [place] % (Auto) 13.2 % 06/12/22 08:26 Eos % (Auto) 0.2 % 06/12/22 08:26 Baso % (Auto) 1.2 % 06/12/22 08:26 Neut # (Auto) 3.95 10^3/uL (1.8-7.7) 06/12/22 08:26 Lymph # (Auto) 1.2 10^3/uL (0.8-4.8) 06/12/22 08:26 [place] # (Auto) 0.8 10^3/uL (0.2-0.9) 06/12/22 08:26 Eos # (Auto) 0.0 10^3/uL (0.0-0.8) 06/12/22 08:26 Baso # (Auto) 0.1 10^3/uL (0.0-0.1) 06/12/22 08:26 Nucleated RBC % (auto) 0 % 06/12/22 08: Nucleated RBCs # 0.0 /100WBC 06/12/22 08:26 Sodium 139 mmol/L (136-145) 06/12/22 09:20 Potassium 3.5 mmol/L (3.5-5.1) 06/12/22 09:20 Chloride 103 mmol/L (98-107) 06/12/22 09:20 Carbon Dioxide 18 mmol/L (22-29) L 06/12/22 09:20 Anion Gap 21.5 (5-19) H 06/12/22 09:20 BUN 41 mg/dL (8-23) H 06/12/22 09:20 Creatinine 1.8 mg/dL (0.5-0.9) H 06/12/22 09:20 GFR Calculation Not Reportable 06/12/22 09:20 Glucose 105 mg/dL (65-115) 06/12/22 09:20 Calculated Osmolality 298 mOsm/kg (285-295) H 06/12/22 09:20 Lactate 6.0 mmol/L (0.5-2.2) H* 06/12/22 08:26 Calcium 7.7 mg/dL (8.5-10.5) L 06/12/22 09:20 Total Bilirubin 0.5 mg/dL (0.15-1.2) 06/12/22 09:20 AST 26 U/L (0-32) 06/12/22 09:20 ALT 9 U/L (0-33) 06/12/22 09:20 Alkaline Phosphatase 44 U/L (35-105) 06/12/22 09:20 Creatine Kinase 757 U/L (26-192) H* 06/12/22 09:20 Troponin T Baseline 99 ng/L (0-10) H 06/12/22 08:26 Total Protein 5.0 g/dL (6.6-8.7) L 06/12/22 09:20 Albumin 2.6 g/dL (3.5-5.2) L 06/12/22 09:20 Globulin 2.4 g/dL (1.3-4.6) 06/12/22 09:20 Urine Color Dipti (Yellow) 06/12/22 08:50 Urine Appearance Hazy (CLEAR) A 06/12/22 08:50 Urine pH 5 (5-7) 06/12/22 08:50 Ur Specific [place] 1.020 (1.005-1.030) 06/12/22 08:50 Urine Protein Trace (Negative) 06/12/22 08:50 Urine Glucose (UA) Norm (Normal) 06/12/22 08:50 Urine Ketones 1+ (Negative) H 06/12/22 08:50 Urine Blood 3+ (Negative) H 06/12/22 08:50 Urine Nitrate Negative (Negative) 06/12/22 08:50 Urine Bilirubin 1+ (Negative) H 06/12/22 08:50 Urine Urobilinogen 1 mg/dL (Negative) H 06/12/22 08:50 Ur Leukocyte Esterase Trace (Negative) H 06/12/22 08:50 Urine RBC 10-15 /hpf (0-2) H 06/12/22 08:50 Urine WBC 0-4 /hpf (0-5) H 06/12/22 08:50 Ur Squamous Epith Cells 0-4 /hpf (0-5) H 06/12/22 08:50 Amorphous Sediment Not Reportable 06/12/22 08:50 Urine Bacteria 1+ /hpf (NONE) H 06/12/22 08:50 Urine Mucus 2+ /hpf 06/12/22 08:50 Discharge Plan Discharge Patient Disposition: Admitted As Inpatient Clinical Impression: Demand ischemia, Atrial fibrillation and flutter, Diarrhea, Dehydration, severe, Diverticulitis Condition: Stable Coding Level of Care Code ED Composite Technician for Chg Fwd Exam Comprehensive
[2022-06-12 09:02] LABS: Troponin(5th) Baseline 99 ng/L (0-10)
--- NOTE | 2022-06-12 09:06 | CTR_ITS ---
PROCEDURE INFORMATION: Exam: CT Abdomen And Pelvis Without Contrast Exam date and time: 06/12/2022 9:34 AM Age: 86 years old Clinical indication: Nausea and vomiting; Abdominal pain TECHNIQUE: Imaging protocol: Computed tomography of the abdomen and pelvis without contrast. Radiation optimization: All CT scans at this facility use at least one of these dose optimization techniques: automated exposure control; mA and/or kV adjustment per patient size (includes targeted exams where dose is matched to clinical indication); or iterative reconstruction. COMPARISON: CT abdomen pelvis wo con [id number] 05/22/2022 7:38 AM RADIATION DOSE METRICS: Total DLP (mGy-cm): 386.69 FINDINGS: Lungs: Centrilobular emphysema is present. No consolidation. Small calcified pleural plaque noted right lung base. Heart: Mildly enlarged heart. Coronary atherosclerotic calcifications seen. No pericardial effusion. Liver: There is tiny calcific densities scattered throughout the liver, likely sequela of previous granulomatous disease. The liver is otherwise unremarkable. Gallbladder and bile ducts: Normal. No calcified stones. No ductal dilation. Pancreas: Normal. No ductal dilation. Spleen: Normal. No splenomegaly. Adrenal glands: Normal. No mass. Kidneys and ureters: There is a 6.4 cm cyst in the right kidney. The kidneys are otherwise unremarkable. Stomach and bowel: There is multiple diverticuli in the sigmoid colon, in association with wall thickening and stranding of the pericolic fat, consistent with acute diverticulitis. Along the lateral wall of the proximal sigmoid colon, there is a fluid collection with air-fluid level measuring approximately 3.5 x 1.7 x 3.3 cm, which may represent contained perforation or wall abscess. There is scattered air-fluid levels in the mildly distended colon proximally. Appendix: No evidence of appendicitis. Intraperitoneal space: Unremarkable. No free air. No significant fluid collection. Vasculature: Moderate diffuse atherosclerotic disease is present. Lymph nodes: Unremarkable. No enlarged lymph nodes. Urinary bladder: The urinary bladder is decompressed with a Sagastume catheter in place. Reproductive: The uterus is surgically absent. Bones/joints: Degenerative changes of the spine seen. Soft tissues: Unremarkable. CT/CT abdomen pelvis wo con [id number] IMPRESSION: Imaging findings of acute sigmoid diverticulitis with small wall abscess versus contained perforation proximally, resulting in dilatation of the colon proximally with scattered air-fluid levels. COMMENTS: Consistent with the [place] [employer]'s Incidental Findings Committee white paper (J Am Mireille Radiol 2018): Any incidental renal lesion less than 1 cm or classified as too small to characterize, or any incidental cystic renal lesion characterized as simple-appearing, is likely benign. No follow-up imaging is recommended for these lesions per consensus recommendations based on imaging criteria.
[2022-06-12 09:31] LABS: Urine Appearance Hazy (CLEAR); Urine Color Amber (Yellow)
[2022-06-12 09:32] LABS: Add Urine Microscopic? YES; Bilirubin Urine 1+ (Negative); Blood Urine 3+ (Negative); Glucose Urine UA Norm (Normal); Ketones Urine 1+ (Negative); Leukocyte Esterase Urine Trace (Negative); Nitrate Urine Negative (Negative); Protein Urine Trace (Negative); Urobilinogen Urine 1 mg/dL (Negative); pH Urine 5 (5-7)
[2022-06-12 09:37] LABS: WBC Urine 0-4 /hpf (0-5)
[2022-06-12 09:38] LABS: Add Urine Culture? Yes; Bacteria Urine 1+ /hpf; Mucus Urine 2+ /hpf; Squamous Epithelial Cell Urine 0-4 /hpf (0-5)
--- NOTE | 2022-06-12 09:57 | ECG_ITS ---
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 Measurements Intervals [place] Rate: 107 P: [place]: QRS: 54 QRSD: 79 T: 19 QT: 316 QTc: 423 Interpretive Statements SINUS TACHYCARDIA WITH PAC'S NONSPECIFIC ST & T-WAVE ABNORMALITY ABNORMAL RHYTHM ECG Compared to ECG 06/12/2022 08:13:56 Atrial flutter no longer present Possible ischemia no longer present T-wave abnormality still present Electronically Signed On 06-14-2022 7:37:02 CDT by Luz Lowe M.D. [id number]
[2022-06-12 10:11] LABS: Alanine Aminotransferase 9 U/L (0-33); Albumin Level 2.6 g/dL (3.5-5.2); Alkaline Phosphatase 44 U/L (35-105); Aspartate Amino Transferase 26 U/L (0-32); Blood Urea Nitrogen 41 mg/dL (8-23); Calcium 7.7 mg/dL (8.5-10.5); Carbon Dioxide 18 mmol/L (22-29); Chloride 103 mmol/L (98-107); Globulin 2.4 g/dL (1.3-4.6); Glucose 105 mg/dL (65-115); Osmolality Calculated 298 mOsm/kg (285-295); Sodium 139 mmol/L (136-145); Total Bilirubin 0.5 mg/dL (0.15-1.2)
[2022-06-12 10:13] LABS: Creatine Phosphokinase 757 U/L (26-192)
[2022-06-12 10:14] LABS: Anion Gap 21.5 (5-19); Potassium 3.5 mmol/L (3.5-5.1)
[2022-06-12] MEDS: piperacillin-tazobactam 3.375 GM in sodium chloride 0.9% (plus) 50 ML IV ×2 (10:30→14:26)
[2022-06-12] MEDS: sodium chloride 0.9% 1,000 ML 999 ML IV ×3 (10:30→17:02)
--- NOTE | 2022-06-12 11:12 | XRR_ITS ---
PROCEDURE INFORMATION: Exam: XR Chest Exam date and time: 06/12/2022 11:16 AM Age: 86 years old Clinical indication: Device placement; Ng tube; Additional info: Ng tube placement TECHNIQUE: Imaging protocol: Radiologic exam of the chest. Views: 1 view. COMPARISON: CT abdomen pelvis wo con [id number] 06/12/2022 9:34 AM FINDINGS: Lungs: Hyperinflation, interstitial prominence, and mild left basilar airspace disease. Device: termination of feeding tube in the gastric fundus. Pleura: No pleural effusion. Heart/Mediastinum: No cardiomegaly. Vasculature: Ectasia of the thoracic aorta. Bones/joints: Osteopenia and degenerative change. Other findings: Linear calcification overlying the right diaphragmatic dome. XR/XR chest 1V portable [id number] IMPRESSION: Termination of feeding tube in the gastric fundus.
[2022-06-12 11:38] LABS: Troponin 5 2HR 98.99 ng/L (0-10)
[2022-06-12 11:41] LABS: Troponin 5 2HR Delta -0.01 ABS# (0-10)
[2022-06-12] MEDS: aspirin 81 mg Chew Tablet 324 MG PO (11:52)
[2022-06-12] MEDS: haloperidol inj 5 mg/mL INJ 1 mL 2 MG IVP (11:52)
--- NOTE | 2022-06-12 11:53 | W.ED.WEAKNES ---
HPI - Weakness General: Chief complaint: Weakness Stated complaint: WEAKNESS; DIARRHEA Time Seen by Provider: 06/12/22 08:03 PFSH ED PFSH: Medical History Abdominal pain Colitis Diverticulitis Diverticulitis large intestine Hypertension Surgical History H/O umbilical hernia repair Family History Denies family history of CAD (coronary artery disease) Social History Smoking and tobacco status: never smoked Alcohol intake: never Lives independently: Yes Course Vital Signs: Vital signs: Vital Signs Temperature 98.2 F 06/12/22 08:02 Pulse Rate 105 H 06/12/22 12:00 Respiratory Rate 21 H 06/12/22 12:00 Blood Pressure 100/59 06/12/22 12:00 Pulse Oximetry 95 06/12/22 12:00 Oxygen Delivery Me thod 06/12/22 13:00 Oxygen Flow Rate 3 06/12/22 12:00 MDM - Weakness Lab Data : 06/12/22 08:26 06/12/22 09:20 Radiology Impressions Abdomen/Pelvis CT 06/12/22 09:06 IMPRESSION: Imaging findings of acute sigmoid diverticulitis with small wall abscess versus contained perforation proximally, resulting in dilatation of the colon proximally with scattered air-fluid levels. COMMENTS: Consistent with the [employer]'s Incidental Findings Committee white paper (J Am Mireille Radiol 2018): Any incidental renal lesion less than 1 cm or classified as too small to characterize, or any incidental cystic renal lesion characterized as simple-appearing, is likely benign. No follow-up imaging is recommended for these lesions per consensus recommendations based on imaging criteria. Chest X-Ray 06/12/22 11:12 IMPRESSION: Termination of feeding tube in the gastric fundus. Laboratory Results WBC 6.1 10^3/uL (4.0-10.0) 06/12/22 08:26 RBC 4.78 10^6/uL (4.1-5.3) 06/12/22 08:26 Hgb 15.6 g/dL (11.5-15.3) H 06/12/22 08:26 Hct 47.8 % (37.0-47.0) H 06/12/22 08: MCV 100.0 fl (81-99) H 06/12/22 08:26 MCH 32.6 pg (28.0-34.0) 06/12/22 08: MCHC 32.6 g/dL (30.0-36.0) 06/12/22 08: RDW 14.4 % (12.1-15.1) 06/12/22 08:26 Plt Count 225 10^3/cmm (130-400) 06/12/22 08: MPV 11.9 fL (7.4-10.4) H 06/12/22 08: Neut % (Auto) 65.1 % 06/12/22 08: Lymph % (Auto) 19.6 % 06/12/22 08: [place] % (Auto) 13.2 % 06/12/22 08: Eos % (Auto) 0.2 % 06/12/22 08: Baso % (Auto) 1.2 % 06/12/22 08:26 Neut # (Auto) 3.95 10^3/uL (1.8-7.7) 06/12/22 08: Lymph # (Auto) 1.2 10^3/uL (0.8-4.8) 06/12/22 08: [place] # (Auto) 0.8 10^3/uL (0.2-0.9) 06/12/22 08: Eos # (Auto) 0.0 10^3/uL (0.0-0.8) 06/12/22 08: Baso # (Auto) 0.1 10^3/uL (0.0-0.1) 06/12/22 08: Nucleated RBC % (auto) 0 % 06/12/22 08: Nucleated RBCs # 0.0 /100WBC 06/12/22 08:26 Sodium 139 mmol/L (136-145) 06/12/22 09:20 Potassium 3.5 mmol/L (3.5-5.1) 06/12/22 09:20 Chloride 103 mmol/L (98-107) 06/12/22 09:20 Carbon Dioxide 18 mmol/L (22-29) L 06/12/22 09:20 Anion Gap 21.5 (5-19) H 06/12/22 09:20 BUN 41 mg/dL (8-23) H 06/12/22 09:20 Creatinine 1.8 mg/dL (0.5-0.9) H 06/12/22 09:20 GFR Calculation Not Reportable 06/12/22 09:20 Glucose 105 mg/dL (65-115) 06/12/22 09:20 Calculated Osmolality 298 mOsm/kg (285-295) H 06/12/22 09:20 Lactate 6.0 mmol/L (0.5-2.2) H* 06/12/22 08:26 Calcium 7.7 mg/dL (8.5-10.5) L 06/12/22 09:20 Total Bilirubin 0.5 mg/dL (0.15-1.2) 06/12/22 09:20 AST 26 U/L (0-32) 06/12/22 09:20 ALT 9 U/L (0-33) 06/12/22 09:20 Alkaline Phosphatase 44 U/L (35-105) 06/12/22 09:20 Creatine Kinase 757 U/L (26-192) H* 06/12/22 09:20 Troponin T Baseline 99 ng/L (0-10) H 06/12/22 08:26 Troponin T 120 Minute 98.99 ng/L (0-10) H 06/12/22 11:04 Delta Troponin T -0.01 ABS# (0-10) L 06/12/22 11:04 Total Protein 5.0 g/dL (6.6-8.7) L 06/12/22 09:20 Albumin 2.6 g/dL (3.5-5.2) L 06/12/22 09:20 Globulin 2.4 g/dL (1.3-4.6) 06/12/22 09:20 Procalcitonin 34.91 ng/mL (0-0.5) H 06/12/22 11:04 Urine Color Dipti (Yellow) 06/12/22 08:50 Urine Appearance Hazy (CLEAR) A 06/12/22 08:50 Urine pH 5 (5-7) 06/12/22 08:50 Ur Specific [place] 1.020 (1.005-1.030) 06/12/22 08:50 Urine Protein Trace (Negative) 06/12/22 08:50 Urine Glucose (UA) Norm (Normal) 06/12/22 08:50 Urine Ketones 1+ (Negative) H 06/12/22 08:50 Urine Blood 3+ (Negative) H 06/12/22 08:50 Urine Nitrate Negative (Negative) 06/12/22 08:50 Urine Bilirubin 1+ (Negative) H 06/12/22 08:50 Urine Urobilinogen 1 mg/dL (Negative) H 06/12/22 08:50 Ur Leukocyte Esterase Trace (Negative) H 06/12/22 08:50 Urine RBC 10-15 /hpf (0-2) H 06/12/22 08:50 Urine WBC 0-4 /hpf (0-5) H 06/12/22 08:50 Ur Squamous Epith Cells 0-4 /hpf (0-5) H 06/12/22 08:50 Amorphous Sediment Not Reportable 06/12/22 08:50 Urine Bacteria 1+ /hpf (NONE) H 06/12/22 08:50 Urine Mucus 2+ /hpf 06/12/22 08:50 Coronavirus 229E (PCR) Not detected (NOT DETECT) 06/12/22 10:38 SARS-CoV-2 (PCR) Not detected (NOT DETECT) 06/12/22 10:38 Discharge Plan Discharge Patient Disposition: Admitted As Inpatient Admit Provider: Yajaira Resendiz Clinical Impression: Demand ischemia, Atrial fibrillation and flutter, Diarrhea, Dehydration, severe, Diverticulitis Condition: Stable Coding Level of Care Code ED Cigarette Inspector for [facility]
--- NOTE | 2022-06-12 12:34 | PM.HP ---
Providers/Chief Complaint Admitting Physician: Yajaira Resendiz MD Primary Care Provider: Adair Freed MD Chief Complaint: WEAKNESS; DIARRHEA History of Present Illness Lana Almendarez is a 86 year old female patient of discharge from the hospital after management of diverticulitis she has had recurrent episodes, she has been experiencing left lower quadrant pain, at the time of discharge she was given Augmentin, patient stating that last night she finished Augmentin she started having diarrhea, diarrhea made her very weak and lethargic, she could not balance herself and fell the ground and did not have energy to get up and make phone call, her neighbor checked on her after 24 hours, 911 call when she found on the floor. Patient is stating that she did not experience chest pain, serial activities. She fell on the ground because of her extreme dehydration and weakness. She lives alone she has 3 children. One of them Is flying to [place] today. In the ER she was diagnosed with A. flutter rvr 170s RVR with hypotension, she was cardioverted, rhythm switched to atrial fibrillation She was extremely dehydrated, Potassium was low, metabolic acidosis related to dehydration Hypertension CPK around 757 Less than 2.99 Troponin trending down Procalcitonin very high She is not septic, secondary to dehydration she has tachycardia, hypertension Review of Systems Const: Reports: body aches and fatigue Eyes: Denies: change in vision ENMT: Denies: throat pain Card: Reports: palpitations and dyspnea on exertion Resp: Reports: dyspnea GI: Reports: nausea, diarrhea and bloating : Denies: flank pain Musc: Denies: neck pain Skin/Breast: Denies: rash Neuro: Denies: headache(s) Psych: Reports: anxiety Endo: Denies: polyuria Jae/Lymph: Denies: easy bruising All/Imm: Denies: urticaria Medications/Allergies Home Medications Medication Instructions Recorded Confirmed Last Taken Type amlodipine 2.5 mg tablet 2.5 mg PO DAILY 03/15/22 06/12/22 06/11/22 History aspirin 81 mg capsule 81 mg PO DAILY 03/15/22 06/12/22 06/11/22 History cholecalciferol (vitamin D3) 25 25 mcg PO DAILY 03/15/22 06/12/22 06/11/22 History mcg (1,000 unit) capsule (Vitamin D3) garlic 500 mg capsule 500 mg PO DAILY 03/15/22 06/12/22 06/11/22 History lisinopril 20 mg tablet 20 mg PO DAILY 03/15/22 06/12/22 06/11/22 History lovastatin 20 mg tablet 20 mg PO DAILY 03/15/22 06/12/22 06/11/22 History lactulose 10 gram/15 mL oral 10 g (15 mL) PO DAILY PRN 03/18/22 06/12/22 Unknown Rx solution constipation #237 mL docusate sodium 100 mg capsule 100 mg PO DAILY 05/22/22 06/12/22 06/11/22 History (Stool Softener) Allergies Allergy/AdvReac Type Severity Reaction Status Date / Time contrast dye Allergy ALGY-Anaphy Uncoded 03/15/22 12:37 laxis PFSH Acute PFSH: Medical History Abdominal pain Colitis Diverticulitis Diverticulitis large intestine Hypertension Surgical History H/O umbilical hernia repair Family History Denies family history of CAD (coronary artery disease) Social History Smoking and tobacco status: never smoked Alcohol intake: never Lives independently: Yes Vitals/I&O/Wt Last Vital Signs Temp 98.2 F 06/12/22 08:02 Pulse 105 H 06/12/22 12:00 Resp 21 H 06/12/22 12:00 BP 100/59 06/12/22 12:00 Pulse Ox 95 06/12/22 12:00 O2 Del Method 06/12/22 12:00 O2 Flow Rate 3 06/12/22 12:00 06/11/22 06/12/22 06/12/22 22:59 06:59 14:59 Intake Total 2059.816 / 2059.816 Balance 9.816 / 2058.816 Weight last 48 hrs Weight 59.874 kg Physical Exam Narrative: Very dehydrated Awake and alert Able to tell me above-mentioned HPI No signs of stroke Abdomen tender left lower quadrant Bowel sound present Currently on 2 L nasal cannula A. fib RVR Hypotensive Severe signs of dehydration Cachectic, malnourished Muscle mass loss Urinary Catheter Management: Sagastume: Cath Placed During This Visit: yes Urinary Catheter Date of Insertion: 06/12/22 Urinary Catheter Time of Insertion: 12:00 Data : 06/13/22 04:28 06/13/22 04:28 Micro: Microbiology 06/12/22 11:04 Blood Culture - Preliminary Blood SPECIMEN COLLECTED 06/12/22 11:00 Blood Culture - Preliminary Blood SPECIMEN COLLECTED A&P Assessment and plan (1) Diverticulitis of large intestine with complication: Status: Acute (2) Demand ischemia: Status: Acute (3) Atrial fibrillation and flutter: Status: Acute (4) Diarrhea: Status: Acute (5) Diverticulitis: Status: Acute (6) Protein calorie malnutrition: Status: Acute Plan Recurrent episodes of diverticulitis General surgery consulted Plan for consultation with IR tomorrow N.p.o. for now Continue IV antibiotics Hypotensive shock secondary to diarrhea, dehydration No signs of sepsis at the time of admission Obtain blood cultures Repeat lactic acid Currently on Levophed, 1 L bolus given in the ICU, multiple boluses were given in the ER Mild protein calorie malnourishment Start TPN patient is extremely dehydrated, malnourished, significant muscle mass loss PICC line versus midline placement A. fib RVR new onset Patient has been cardioverted once Will start amnio drip Hold anticoagulating agent in anticipation of intervention tomorrow [id number] 3 Patient is DNR/DNI Rule out C. difficile as she has been having diarrhea since finishing Augmentin course N.p.o. for now Patient refuses to go to rehab or SNF will Discuss with her family Patient is very weak and lethargic Deconditioning High risk for deterioration Attestations Medical Necessity Statement*: Anticipating more than 2 midnights Time Spent in Patient Care: 40 Coding Level of Care Code Acute Regional Merchandising Manager for [facility] Fwd Diagnoses Diverticulitis of large intestine with complication K57.32 Demand ischemia I24.8 Atrial fibrillation and flutter I48.91; I48.92 Diarrhea R19.7 Diverticulitis K57.92 Protein calorie malnutrition E46
--- NOTE | 2022-06-12 12:47 | PM.CONSULT ---
Providers/Reason For Consult Consulting Physician/Specialty*: Dr. Gaetano Nesbitt, DO/General surgery Reason for Consult*: Diverticulitis Attending Physician: Yajaira Resendiz MD Primary Care Provider: Adair Freed MD History of Present Illness History of Present Illness Lana Almendarez is a 86 year old female, who is already known to me for recent treatment of diverticulitis, who presents to the hospital after being found down at home. She has been dealing with recurrent diverticulitis for last 3 months. She last started antibiotics on May 22, 2022. She completed her 2 weeks of Augmentin at home. She has been having multiple loose bowel movements. She denies any nausea or vomiting. She reports that she fell getting out of bed last night and was too weak to get up. She began having increased abdominal pain again yesterday. The pain is sharp and constant, located in the left hemiabdomen. The pain does not radiate. Palpation makes the pain worse. Nothing makes pain better. She denies any nausea or vomiting. Denies any fever or chills. She reports feeling weak. She reports that she has not had any nutrition for at least a few days due to weakness and malaise Review of Systems General: Reports: 10 or more systems reviewed and unremarkable except in HPI and below Medications/Allergies Home Medications Medication Instructions Recorded Confirmed Last Taken Type amlodipine 2.5 mg tablet 2.5 mg PO DAILY 03/15/22 06/12/22 06/11/22 History aspirin 81 mg capsule 81 mg PO DAILY 03/15/22 06/12/22 06/11/22 History cholecalciferol (vitamin D3) 25 25 mcg PO DAILY 03/15/22 06/12/22 06/11/22 History mcg (1,000 unit) capsule (Vitamin D3) garlic 500 mg capsule 500 mg PO DAILY 03/15/22 06/12/22 06/11/22 History lisinopril 20 mg tablet 20 mg PO DAILY 03/15/22 06/12/22 06/11/22 History lovastatin 20 mg tablet 20 mg PO DAILY 03/15/22 06/12/22 06/11/22 History lactulose 10 gram/15 mL oral 10 g (15 mL) PO DAILY PRN 03/18/22 06/12/22 Unknown Rx solution constipation #237 mL docusate sodium 100 mg capsule 100 mg PO DAILY 05/22/22 06/12/22 06/11/22 History (Stool Softener) Allergies Allergy/AdvReac Type Severity Reaction Status Date / Time contrast dye Allergy ALGY-Anaphy Uncoded 03/15/22 12:37 laxis Current Medications Generic Name Dose Route Start Last Admin Trade Name Freq PRN Reason Stop Dose Admin Diltiazem HCl 50 mg/ Sodium 50 mls @ 0 mls/hr 06/12/22 08:45 06/12/22 09:50 Chloride IV 0 mg/hr .Q0M RUSSEL 0 mls/hr Titration Protocol Per Protocol Norepinephrine Bitartrate 4 mg 254 mls @ 0 mls/hr 06/12/22 10:45 06/12/22 11:42 / Dextrose IV 6 mcg/min .Q0M RUSSEL 22.86 mls/hr Titration Protocol Per Protocol PFSH Acute PFSH: Medical History Abdominal pain Colitis Diverticulitis Diverticulitis large intestine Hypertension Surgical History H/O umbilical hernia repair Family History Denies family history of CAD (coronary artery disease) Social History Smoking and tobacco status: never smoked Alcohol intake: never Lives independently: Yes Vitals/I&O/Wt Last Vital Signs Temp 98.2 F 06/12/22 08:02 Pulse 105 H 06/12/22 12:00 Resp 21 H 06/12/22 12:00 BP 100/59 06/12/22 12:00 Pulse Ox 95 06/12/22 12:00 O2 Del Method 06/12/22 12:00 O2 Flow Rate 3 06/12/22 12:00 06/11/22 06/12/22 06/12/22 22:59 06:59 14:59 Intake Total 9.816 / 2058.816 Balance 2058.816 / 2058.816 Weight last 48 hrs Weight 132 lb Physical Exam Narrative: General : Patient is well developed , no acute distress, oriented x3 Head : Normal cephalic, a-traumatic. Ears : Pinnae and external canal are normal. Hearing is normal. Eyes : PERRLA, Sclera and injection are normal. No conjunctival discharge. Nose : Mucous membranes are without erythema. Throat : buccal mucosa is normal, gums are without significant recession or hypertrophy. Lungs : Equal chest rise bilaterally, no use of accessory muscles, trachea is midline. Cor : Rate and rhythm are normal. Abdomen : Soft, ND, tender to palpation left hemiabdomen, no g/r/m Extremities : No edema, no cyanosis or clubbing, dorsalis pedis pulses are present bilaterally, non-tender to palpation of calves. Upper extremities are normal bilaterally. Back : non-tender to palpation, no CVA tenderness. Neuro : CN II - XII intact, Upper and lower extremities have equal and full strength Urinary Catheter Management: Sagastume: Cath Placed During This Visit: yes Urinary Catheter Date of Insertion: 06/12/22 Urinary Catheter Time of Insertion: 12:00 Data : 06/12/22 08:26 06/12/22 09:20 Micro: Microbiology 06/12/22 11:04 Blood Culture - Preliminary Blood SPECIMEN COLLECTED 06/12/22 11:00 Blood Culture - Preliminary Blood SPECIMEN COLLECTED A&P Assessment and plan (1) Diarrhea: Status: Acute (2) Diverticulitis of large intestine with complication: Status: Acute Plan It is unclear if the collection of gas and fluid in descending colon wall is amenable to IR drainage. Does not look very well formed yet. I will discuss with IR in the morning. IV fluids Continue Zosyn Stool studies, especially for C. difficile She is malnourished and has not had nutrition in some time. She will likely go a while without nutrition while in the hospital. Recommend PICC line and TPN until she can eat. I would like to avoid a colostomy on this patient, which is the only surgical option at this time. However she has not fully cleared her diverticulitis despite intermittent therapy for 3 months. Is highly likely that she has C. difficile. We will treat conservatively for now for complicated diverticulitis with IV antibiotics, n.p.o. and perform further investigations with stool studies Coding Level of Care Code Acute Lead Generation Marketing Manager for [facility] Fw Diagnoses Diarrhea R19.7 Diverticulitis of large intestine with complication K57.32
[2022-06-12 13:19] LABS: Adenovirus Not Detected (NOT DETECT); Chlamydia Pneumoniae Not Detected (NOT DETECT); Coronavirus 229E,HKU1,NL63,OC4 Not Detected (NOT DETECT); Human Metapneumovirus Not Detected (NOT DETECT); Human Rhinovirus/Enterovirus Not Detected (NOT DETECT); Influenza A Not Detected (NOT DETECT); Influenza A H1 Not Detected (NOT DETECT); Influenza A H1-2009 Not Detected (NOT DETECT); Influenza A H3 Not Detected (NOT DETECT); Influenza B Not Detected (NOT DETECT); Mycoplasma Pneumoniae Not Detected (NOT DETECT); Parainfluenza Virus Type 1 Not Detected (NOT DETECT); Parainfluenza Virus Type 2 Not Detected (NOT DETECT); Parainfluenza Virus Type 3 Not Detected (NOT DETECT); Parainfluenza Virus Type 4 Not Detected (NOT DETECT); Respiratory Syncytial Virus A Not Detected (NOT DETECT); Respiratory Syncytial Virus B Not Detected (NOT DETECT); SARS-COV-2 Not Detected (NOT DETECT)
--- NOTE | 2022-06-12 14:08 | ECG_ITS ---
[facility] Test Date: 2022-06-12 Pat Name: Lana Almendarez Department: Room: ICU07 Gender: Female Glass Washer: : 1935 Requested By: Chavez Bales Order Number: [id number] Cassidy MD: Luz Lowe M.D. Measurements Intervals [place] Rate: 107 P: [place]: QRS: 24 QRSD: 85 T: -85 QT: 301 QTc: 403 Interpretive Statements SINUS TACHYCARDIA WITH PAC'S POSSIBLE RIGHT VENTRICULAR CONDUCTION DELAY [RSR (QR) IN V1/V2] ST DEVIATION AND MODERATE T-WAVE ABNORMALITY, CONSIDER ANTEROLATERAL ISCHEMIA [-0.1+ mV T-WAVE IN V3-V6] Compared to ECG 06/12/2022 09:57:45 Possible ischemia now present T-wave abnormality still present Electronically Signed On 06-14-2022 7:35:44 CDT by Luz Lowe M.D. [id number]
[2022-06-12] MEDS: dextrose 5%-ns + KCl 20 20 MEQ/1,000 ML BAG 75 MEQ IV (14:20)
[2022-06-12] MEDS: vancomycin 750 MG in sodium chloride 0.9% 250 ML 250 MG IV (14:55)
[2022-06-12 15:11] LABS: Procalcitonin 34.91 ng/mL (0-0.5)
--- NOTE | 2022-06-12 16:45 | PC.NURSE ---
MIDLINE RIGHT arm ready for use. Unable to place PICC line. Primary nurse BJ RN notified.
[2022-06-12 19:19] LABS: Lactate (Lactic Acid level) 2.9 mmol/L (0.5-2.2)
[2022-06-12] MEDS: lactated ringers 1,000 ML 999 ML IV (21:00)
[2022-06-12 21:10] LABS: Magnesium 1.7 mg/dL (1.7-2.3)
[2022-06-12 21:35] LABS: Hematocrit 41.6 % (37.0-47.0); Hemoglobin 13.3 g/dL (11.5-15.3); Mean Corpuscular Hemoglobin 32.8 pg (28.0-34.0); Mean Corpuscular Volume 102.5 fl (81-99); Platelet Count 168 10^3/cmm (130-400); Red Blood Count 4.06 10^6/uL (4.1-5.3); Red Cell Distribution Width 14.7 % (12.1-15.1); White Blood Count 4.7 10^3/uL (4.0-10.0)
[2022-06-12 21:40] LABS: Alanine Aminotransferase 10 U/L (0-33); Albumin Level 1.9 g/dL (3.5-5.2); Alkaline Phosphatase 34 U/L (35-105); Aspartate Amino Transferase 28 U/L (0-32); Blood Urea Nitrogen 47 mg/dL (8-23); Carbon Dioxide 16 mmol/L (22-29); Chloride 105 mmol/L (98-107); Globulin 2.1 g/dL (1.3-4.6); Glucose 127 mg/dL (65-115); Magnesium 1.7 mg/dL (1.7-2.3); Osmolality Calculated 296 mOsm/kg (285-295); Sodium 136 mmol/L (136-145); Total Bilirubin 0.4 mg/dL (0.15-1.2)
[2022-06-12 21:43] LABS: Lactate (Lactic Acid level) 4.2 mmol/L (0.5-2.2)
[2022-06-12] MEDS: lidocaine 1% 5 ML in potassium chloride premix 100 ML 25 ML IV (22:01)
[2022-06-12] MEDS: sodium bicarbonate 8.4% 1 mEq/mL 50mL Syr 50 MEQ IVP (22:05)
[2022-06-12] MEDS: magnesium sulfate premix 4 GM/100 ML PREMIX IV (22:25)
[2022-06-12 22:27] LABS: Absolute Neutrophil 2.1 10^3/cmm (1.4-6.5); Absolute Segmented Neutrophil 1.1 10/cmm (1.6-7.1); Eosinophils 0 %; Lymphocytes 35 %; Lymphocytes Absolute 1.7 10^3/cmm (1.2-3.4); Monocytes Absolute 0.7 10^3/cmm (0.1-0.6); Platelet Estimate Normal (Normal); Segmented Neutrophils 23 %; Total Cells Counted 100 (0-100)
[2022-06-12 22:28] LABS: Burr Cells Trace
[2022-06-13] VITALS (129 sets, daily range): BP systolic 0–134; BP diastolic 0–105; PULSE 0–102; RESP 0–47; TEMP 35.5–36.4; O2SAT 0–100
[2022-06-13] MEDS: ondansetron 2 mg/ML SDV 2 mL 4 MG IVP (00:24)
[2022-06-13] MEDS: HYDROmorphone 1 mg/mL INJ 1 mL 0.2 MG IVP ×2 (01:45→16:59)
[2022-06-13] MEDS: piperacillin-tazobactam 3.375 GM in sodium chloride 0.9% (plus) 50 ML IV ×2 (02:05→14:55)
[2022-06-13] MEDS: lidocaine 1% 5 ML in potassium chloride premix 100 ML 50 ML IV (02:16)
[2022-06-13] MEDS: dextrose 5%-ns + KCl 20 20 MEQ/1,000 ML BAG 75 MEQ IV (02:38)
--- NOTE | 2022-06-13 03:18 | PC.NURSE ---
Patient has produced ~ 100ml of urine for this shift. MD made aware, will continue to monitor.
[2022-06-13 04:39] LABS: Basophils # 0.1 10^3/uL (0.0-0.1); Basophils % 1.7 %; Eosinophils # 0.1 10^3/uL (0.0-0.8); Eosinophils % 1.1 %; Hematocrit 40.7 % (37.0-47.0); Lymphocytes # 1.4 10^3/uL (0.8-4.8); Lymphocytes % 26.9 %; Mean Corpuscular HGB Conc 31.9 g/dL (30.0-36.0); Mean Corpuscular Hemoglobin 32.9 pg (28.0-34.0); Mean Platelet Volume 12.4 fL (7.4-10.4); Monocytes # 0.5 10^3/uL (0.2-0.9); Neutrophils # 2.88 10^3/uL (1.8-7.7); Neutrophils % 54.1 %; Nucleated Red Blood Cells % 0.6 %; Platelet Count 116 10^3/cmm (130-400); Red Blood Count 3.95 10^6/uL (4.1-5.3); Red Cell Distribution Width 14.8 % (12.1-15.1); White Blood Count 5.3 10^3/uL (4.0-10.0)
[2022-06-13 05:06] LABS: Lactate (Lactic Acid level) 3.7 mmol/L (0.5-2.2)
[2022-06-13 05:08] LABS: Anion Gap 20.6 (5-19); Blood Urea Nitrogen 51 mg/dL (8-23); C Reactive Protein 288.2 mg/L (0.0-4.9); Carbon Dioxide 13 mmol/L (22-29); Chloride 107 mmol/L (98-107); Glucose 134 mg/dL (65-115); Magnesium 3.1 mg/dL (1.7-2.3); Osmolality Calculated 296 mOsm/kg (285-295); Phosphorus 4.9 mg/dL (2.5-4.5); Potassium 5.6 mmol/L (3.5-5.1); Sodium 135 mmol/L (136-145)
[2022-06-13 05:47] LABS: Creatine Phosphokinase 508 U/L (26-192)
[2022-06-13 06:01] LABS: Slide Review Slide Review Perform
[2022-06-13] MEDS: FUROsemide 10 mg/mL SDV 4mL 40 MG IVP (06:40)
--- NOTE | 2022-06-13 07:28 | XRR_ITS ---
PROCEDURE INFORMATION: Exam: XR Chest Exam date and time: 06/13/2022 7:36 AM Age: 86 years old Clinical indication: Condition or disease; Lung condition and disease; Pneumonia; Additional info: Pneumonia hypoxia TECHNIQUE: Imaging protocol: Radiologic exam of the chest. Views: 1 view. COMPARISON: CR (CHEST, ) 06/12/2022 11:16 AM FINDINGS: Tubes, catheters and devices: Nasogastric tube is once again seen. The distal aspect is not visualized on the exam. Lungs: There are decreased small lung volumes. Increased mild bilateral perihilar and right basilar interstitial opacities are seen with some left basilar airspace opacities. Increased small bilateral pleural effusions. These findings may represent worsened pulmonary edema. Underlying pneumonia cannot be excluded. Recommend follow-up. Pleural spaces: No pneumothorax. Heart/Mediastinum: The heart size is normal. There is a mildly tortuous thoracic aorta. Unchanged mild rightward lower tracheal deviation is seen. Bones/joints: No acute osseous abnormalities seen. Soft tissues: Multiple external densities are seen overlying the chest, limiting assessment. XR/XR chest 1V portable [id number] IMPRESSION: Decreased small lung volumes. Increased mild bilateral perihilar and right basilar interstitial opacities with some left basilar airspace opacities. Increased small bilateral pleural effusions. These findings may represent worsened pulmonary edema. Underlying pneumonia cannot be excluded. Recommend follow-up.
[2022-06-13 07:47] LABS: Alveolar-Arterial Oxygen Gradi 3.3 mmHg (5-10); Arterial Blood Gas Hematocrit 36.4 % (37-47); Base Excess ABG -16.2 mmol/L (-2.0-2.0); Blood Gas Allen Test Pos; Blood Gas Operator Identificat CAK; Blood Gas Sample Site Femoral, left; Blood Gas Sample Type Arterial; Carboxyhemoglobin 0.7 %THgb (0.4-20.1); HCO3 ABG 13.1 mmol/L (22-26); HGB O2 Sat 88.9 % (95-100); Ionized Calcium Level - ABG 1.1 mmol/L (1.1-1.4); Methemoglobin 1.1 % (0.4-1.5); Oxygen Device NRB; Oxygen Saturation ABG 90.5; PO2 ABG 70.3 mmHg (80.0-100.0); Potassium Level - ABG 5.6 mmol/L (3.5-5.0); Total Hemoglobin 11.9 g/dL (12-16)
[2022-06-13 07:48] LABS: ABG PH Result 7.08 (7.35-7.45)
[2022-06-13] MEDS: calcium gluconate 0.9% NaCL 1 GM/50 ML PREMIX IV (08:24)
[2022-06-13] MEDS: FUROsemide 10 mg/mL SDV 2mL 20 MG IVP (08:24)
[2022-06-13] MEDS: dextrose 50% syringe 50 mL 25 ML IVP (08:25)
[2022-06-13 08:33] LABS: Urine Creatinine 127 mg/dL (28-217); Urine Random Chloride 21 mmol/L; Urine Random Sodium 26 mmol/L
[2022-06-13] MEDS: insulin regular-human 10 UNIT in SYRINGE 1 EACH IVP (08:35)
--- NOTE | 2022-06-13 08:35 | PC.NURSE ---
blood sugar was 68 before administration on insulin and D50. Dr. Ruvalcaba made aware and gave verbal order to give 50ml of D50. Medication given. Blood sugar recheck was above 200.
[2022-06-13 08:38] LABS: Creatinine Urine, Random 125 mg/dL (28-217); Microalbumin Random Urine 32 ug/dL (0-20)
[2022-06-13 08:40] LABS: Glucose Point of Care 68 mg/dL (70-110)
[2022-06-13 08:40] LABS: Microalbum Creatinine Ratio Ur 256 mg/dL (0-20)
[2022-06-13 08:42] LABS: Urine Random Potassium 85 mmol/L
[2022-06-13] MEDS: sodium bicarbonate 150 MEQ in dextrose 5% 1,000 ML 100 MEQ IV (08:55)
[2022-06-13 08:58] LABS: Eosinophil Urine No Eosinophils Seen; Urine Eosinophil Count 0 (0-0)
[2022-06-13 09:11] LABS: Glucose Point of Care 228 mg/dL (70-110)
--- NOTE | 2022-06-13 12:37 | PC.NURSE ---
Rectal temperature is 96.1 and skin cool to touch. All extremities, lips and ears are cyanotic. Micah hugger applied.
--- NOTE | 2022-06-13 13:26 | P.PN_ITS ---
Subjective Subjective: Around 6:30 AM patient started getting hypotensive and her skin was getting mottled When I evaluate the patient I gave her 1 L bolus of normal saline as she has received fluids overnight, started bicarb drip gave her high-dose steroids at that time she was on Levophed and vasopressin, she was also given 2 g of calcium gluconate She was on 15 L nonrebreather mask that was switched to BiPAP, Patient was awake however very lethargic and fatigued Able to follow commands Rechecked around 1:20 PM We are able to titrate off vasopressors Repeating CBC, CMP and blood gas Skin mottling has improved Urine output is minimal, ATN oliguric Creatinine is stable Hyperkalemia noted Severe acidemia She is hypothermic with tachypnea with endorgan damage, sepsis ruled in blood cultures were taken at the time of admission, she has been getting fluids all night, she was given 1 L of extra bolus in the morning Sepsis ruled in around Restricted fluids were given at the time of diagnosis of sepsis because chest x- ray showing pulm edema Vitals/I&O/Wt Last Vital Signs Temp 96.1 F L 06/13/22 11:46 Pulse 74 06/13/22 12:15 Resp 37 H 06/13/22 12:15 BP 127/75 06/13/22 12:15 Pulse Ox 51 L 06/13/22 08:45 O2 Del Method 06/13/22 08:45 O2 Flow Rate 15 06/13/22 07:00 FiO2 100 06/13/22 10:49 06/12/22 06/13/22 06/13/22 22:59 06:59 14:59 Intake Total 3880.525 / 5994.951 1917.148 / 7912.099 452.255 / 452.255 Output Total 100 / 100 50 / 150 50 / 50 Balance 3780.525 / 5894.951 1867.148 / 7762.099 402.255 / 402.255 Weight last 48 hrs Weight 59.874 kg Weight 59.874 kg Physical Exam Narrative: Patient is awake however lethargic and fatigued Currently on nonrebreather mask 15 L S1, S2 No murmur Bilateral diminished breath sounds Patient is able to follow commands Skin is mottled Family at the bedside Son and daughter updated She was put in Trendelenburg position Abdomen soft Patient not complaining of active pain Minimal urine in her bag Urinary Catheter Management: Sagastume: Cath Placed During This Visit: yes Reason for Continuing Indwelling Catheter: Accurate Measurement of Urinary Output in Critically Ill Patients Urinary Catheter Date of Insertion: 06/12/22 Urinary Catheter Time of Insertion: 12:00 Data : 06/13/22 04:28 06/13/22 04:28 Micro: Microbiology 06/12/22 11:04 Blood Culture - Preliminary Blood NEGATIVE TO DATE 06/12/22 11:00 Blood Culture - Preliminary Blood NEGATIVE TO DATE 06/12/22 08:50 Urine Culture - Preliminary Urine,Clean Catch A&P Assessment and plan (1) Sepsis: Status: Acute (2) Protein calorie malnutrition: Status: Acute (3) Septic shock: Status: Acute (4) Diverticulitis of large intestine with complication: Status: Acute (5) Demand ischemia: Status: Acute (6) Atrial fibrillation and flutter: Status: Acute (7) Diarrhea: Status: Acute (8) Diverticulitis: Status: Acute (9) Dehydration, severe: Status: Acute Plan Septic shock with underlying severe dehydration/hypovolemic shock Currently on 2 vasopressors, she was given high-dose steroids this morning Calcium gluconate Persistent lactic acidemia Minimal urine output Cultures were taken in the ER She had received fluids all night She is hypothermic, tachypneic with endorgan damage I have given her 1 L of bolus in the morning at the time of diagnosis sepsis, I have chosen 1 L because chest x-ray showing pulm edema along pneumonia A. fib without RVR amiodarone can be switched to p.o. regimen in the evening Repeat CBC, CMP and blood gas ATN related to septic shock At home she was taking lisinopril, severely dehydrated, Creatinine plateaued 2.3 monitor for now Minimal urine output I will give her another normal saline bolus She was given Lasix in the morning when chest ray showed pulm edema, judicious use of fluids Will request echo Urine studies requested Acute hypoxia related to hypoventilation Chest x-ray shows pulm edema with pneumonia Currently on broad-spectrum antibiotics Started her on BiPAP, she was awake and alert able to tolerate the BiPAP Severe acidosis related to lactic acidemia Started bicarb drip Hypocalcemia: Given calcium gluconate For hyperkalemia she has received Gluconate, Insulin and D50 Amp Hypoglycemia: She was given D50 amp Guarded prognosis DNR/DNI Family updated) General Surgeon updated as well Attestations Medical Necessity Statement*: Continue ICU management Critical Care Time: 40mins Coding Level of Care Code Acute Department Assistant for Chg Fwd Diagnoses Sepsis A41.9 Protein calorie malnutrition E46 Septic shock A41.9; R65.21 Diverticulitis of large intestine with complication K57.32 Demand ischemia I24.8 Atrial fibrillation and flutter I48.91; I48.92 Diarrhea R19.7 Diverticulitis K57.92 Dehydration, severe E86.0
--- NOTE | 2022-06-13 13:35 | USCV_ITS ---
Lana Almendarez Age: 86 Gender: F : 1935 Exam Date: 06/13/2022 15:06 Ordering Phys: Yajaira Resendiz MD Technologist: Geoff Figueroa [place] [facility] [place]: [place] shock BP: 121 / 83 HR: 69 Rhythm: Sinus Technical Quality: MEASUREMENTS (Male / Female) Normal Values 2D ECHO LV Diastolic Diameter PLAX 4.8 cm 4.2 - 5.9 / 3.9 - 5.3 cm LV Systolic Diameter PLAX 3.4 cm IVS Diastolic Thickness 1.2 cm 0.6 - 1.0 / 0.6 - 0.9 cm IVS Systolic Thickness 1.5 cm LVPW Diastolic Thickness 1.1 cm 0.6 - 1.0 / 0.6 - 0.9 cm LVPW Systolic Thickness 2.1 cm LVOT Diameter 2.0 cm LV Ejection Fraction 2D Teich 57.6 % LV Ejection Fraction MOD 2C 57.8 % LV Ejection Fraction 2C AL 59.3 % LA Diameter 4.5 cm M-MODE Aortic Annulus Diameter 4.9 cm LA Ao Ratio MM 1.1 MV E Point Septal Separation 2.2 cm DOPPLER AV Peak Velocity 191.0 cm/s LVOT Peak Velocity 99.0 cm/s AV Area Cont Eq vti 1.4 cm squared AV Area Cont Eq pk 1.6 cm squared MV Area PHT 5.0 cm squared Mitral E to A Ratio 1.2 MV E' Velocity 41.5 cm/s Mitral E to MV E' Ratio 9.7 Mitral E to LV E' Lateral Ratio 7.3 Mitral E to LV E' Septal Ratio 14.4 TR Peak Velocity 234.3 cm/s TR Peak Gradient 22.0 mmHg TV Peak E Velocity 53.0 cm/s Right Atrial Pressure 3.0 mmHg Pulmonary Artery Systolic Pressu 25.0 mmHg PV Peak Velocity 115.0 cm/s FINDINGS Left Ventricle Left ventricle is normal in size. Grossly LV systolic function is mildly reduced. Regional wall motion abnormalities cannot be accurately assessed because of poor ultrasonic windows. Right Ventricle Normal in size and function Right Atrium Normal in size Left Atrium Normal in size Mitral Valve Mild mitral regurgitation. Aortic Valve Aortic valve is thickened. Mild aortic stenosis with aortic valve area 1.42 cm2 with mean gradient across aortic valve of 6.1 mmHg. Mild regurgitation. Tricuspid Valve Trace tricuspid regurgitation. Insufficient TR jet to calculate RVSP Pulmonic Valve Not visualized Pericardium Normal Aorta Normal in size IVC CONCLUSIONS Technically limited quality echocardiogram because of poor ultrasonic windows. Grossly LV systolic function mildly reduced. Regional wall motion abnormalities cannot be accurately assessed because of poor ultrasonic windows. Mild mitral regurgitation Aortic valve is thickened. Mild aortic stenosis with aortic valve area of 1.42cm squared with a mean gradient across aortic valve of 6.1 mmHg Mild aortic regurgitation No comparison studies are available Errol Franco MD (Electronically Signed) Final Date: 13 June 2022 17:40 S
[2022-06-13 13:49] LABS: ABG PCO2 25.6 mmHg (35-45); Arterial Blood Gas Hematocrit 35.3 % (37-47); Base Excess ABG -18.4 mmol/L (-2.0-2.0); Blood Gas Allen Test Pos; Blood Gas Operator Identificat CAK; Blood Gas Sample Site Radial, left; Blood Gas Sample Type Arterial; HCO3 ABG 8.9 mmol/L (22-26); Oxygen Device BIPAP; PO2 ABG 97.6 mmHg (80.0-100.0)
[2022-06-13 13:51] LABS: ABG PH Result 7.15 (7.35-7.45)
[2022-06-13 14:04] LABS: Basophils % 0.1 %; Eosinophils # 0.1 10^3/uL (0.0-0.8); Eosinophils % 1.5 %; Hemoglobin 11.1 g/dL (11.5-15.3); Lymphocytes # 1.8 10^3/uL (0.8-4.8); Lymphocytes % 20.6 %; Mean Corpuscular HGB Conc 30.8 g/dL (30.0-36.0); Mean Corpuscular Volume 107.1 fl (81-99); Mean Platelet Volume 13.2 fL (7.4-10.4); Monocytes # 0.8 10^3/uL (0.2-0.9); Neutrophils # 5.28 10^3/uL (1.8-7.7); Neutrophils % 59.9 %; Nucleated Red Blood Cells # 0.1 /100WBC; Nucleated Red Blood Cells % 1.6 %; Red Blood Count 3.36 10^6/uL (4.1-5.3); Red Cell Distribution Width 15.7 % (12.1-15.1); White Blood Count 8.8 10^3/uL (4.0-10.0)
[2022-06-13 14:32] LABS: Lactate (Lactic Acid level) 9.2 mmol/L (0.5-2.2)
[2022-06-13 14:36] LABS: Platelet Count 100 10^3/cmm (130-400); Slide Review Slide Review Perform
[2022-06-13] MEDS: sodium chloride 0.9% 1,000 ML 999 ML IV (14:56)
[2022-06-13 16:22] LABS: Alanine Aminotransferase 40 U/L (0-33); Albumin Level 2.4 g/dL (3.5-5.2); Alkaline Phosphatase 39 U/L (35-105); Anion Gap 26.4 (5-19); Aspartate Amino Transferase 107 U/L (0-32); Blood Urea Nitrogen 47 mg/dL (8-23); Calcium 6.4 mg/dL (8.5-10.5); Carbon Dioxide 10 mmol/L (22-29); Chloride 101 mmol/L (98-107); Globulin 2.1 g/dL (1.3-4.6); Glucose 72 mg/dL (65-115); Osmolality Calculated 285 mOsm/kg (285-295); Potassium 5.4 mmol/L (3.5-5.1); Sodium 132 mmol/L (136-145); Total Bilirubin 0.5 mg/dL (0.15-1.2); Total Protein 4.5 g/dL (6.6-8.7)
[2022-06-13] MEDS: morphine 4 mg/mL SDV 1 mL IVP (19:59)
--- NOTE | 2022-06-13 20:13 | PC.NURSE ---
Addendum entered by Lois Cano RN 06/13/22 20:49: When levophed runs out, son Andrew Almendarez, wishes to remove bipap and apply nasal canula. Original Note: Son and family at bedside, he states the families wishes are to let the levophed run out, and stop at that time. Informed son, at current rate, the drips would run out in just a few hours, also offered to turn off levophed drip at this time. Son wishes to continue current bag of levophed then stop.
--- NOTE | 2022-06-13 22:23 | PC.NURSE ---
Levophed drip has run out at this time, bipap and NG tube were removed and nasal cannula applied. Called and spoke with patients son, Andrew, he stated he would notify Nguyen and Catarina, his sisters. Patients HR has significantly decreased at this time, and she is unresponsive to external stimuli. Dakota Almendarez verbalizes understanding.
--- NOTE | 2022-06-13 22:50 | PC.NURSE ---
Patient became asystole at 2247. Two RNs at bedside to auscultate heart sounds. No heart or lung sounds noted. Dr. Carcamo notified, and family called at this time.
--- NOTE | 2022-06-13 23:00 | PC.NURSE ---
Family at bedside. Body transfer record form signed at this time, Family has elected to release body to [place] [facility] in [place], [facility]. Patient belongings, including two rings and a watch the patient had on given to family. animal control supervisor made aware.
--- NOTE | 2022-06-13 23:21 | PC.NURSE ---
[facility] notified of pt expiration. Pt is potential candidate. [facility] Respresentative Ref # [id number]
--- NOTE | 2022-06-14 00:16 | PC.NURSE ---
Called [facility] in [place], [place]. Spoke to Mahin, who request that [place] [facility] [place]. dehydrogenation supervisor made aware.
--- NOTE | 2022-06-14 00:51 | PC.NURSE ---
Body taken to [facility] [place], transported by live in housekeeper and RN.
[2022-06-14 05:18] VITALS: BP 0/0; PULSE 0; RESP 0; TEMP -17.7; TEMP 0; O2SAT 0
--- NOTE | 2022-06-14 09:48 | PM.DDS ---
Discharge Providers DDS Date of Admission: 06/12/22 11:53 Date Summary Completed: 06/14/22 Attending Provider at Admission: Yajaira Resendiz MD Time of : 22:47 Attending Provider at Discharge: Yajaira Resendiz MD Primary Care Provider: Adair Freed MD DS Diagnoses Hospital Diagnoses (1) Sepsis: (2) Protein calorie malnutrition: (3) Septic shock: (4) Diverticulitis of large intestine with complication: (5) Demand ischemia: (6) Atrial fibrillation and flutter: (7) Diarrhea: (8) Diverticulitis: (9) Dehydration, severe: Reason for Visit Reason for Visit WEAKNESS; DIARRHEA Brief History: 86-year female who was admitted for severe dehydration, diverticulitis with abscess, developed sepsis, went into septic shock, she was on 2 vasopressors along albumin, IV antibiotics, she was put on BiPAP because she was not able to keep up with her work of breathing because of severe acidosis. Bicarb drip was initiated. Her urine output was extremely low. She developed sepsis related ATN. Multiple family meetings were conducted at least 5 times on 06/13, daughter from [place] was updated, son was at the bedside, they decided to pursue comfort measures around 6:30 PM. Summary Date and Time of Date of : 06/13/22 Time of : 22:47 Summary Summary: 86-year female who was admitted for severe dehydration, diverticulitis with abscess, developed sepsis, went into septic shock, she was on 2 vasopressors along albumin, IV antibiotics, she was put on BiPAP because she was not able to keep up with her work of breathing because of severe acidosis. Bicarb drip was initiated. Her urine output was extremely low. She developed sepsis related ATN. Multiple family meetings were conducted at least 5 times on 06/13, daughter from [place] was updated, son was at the bedside, they decided to pursue comfort measures around 6:30 PM. Additional Data Confirmation of as documented by pronouncing clinician: no pulse, no respirations, no heart sounds and pupils fixed and dilated Family: at bedside Additional persons at bedside: nursing staff Attending/PCP notified?: I am attending Was code activated?: No Autopsy requested?: No Advance directives?: No Hospice patient?: Yes Discharge Plan Discharge Patient Disposition: Condition: Stable Probable Cause of Probable cause of : Septic shock DS Attestations Time Spent in /Discharge Care*: less than 30 min Quality - AMI: AMI present?: No Quality - Stroke: CVA present?: No Symptom Onset Unknown: No Quality - VTE: VTE present?: No Deep Vein Thrombosis/Pulmonary Embolism Present on Admission: No Coding Level of Care Code Acute Respiratory Clinician for g Fwd Diagnoses Sepsis A41.9 Protein calorie malnutrition E46 Septic shock A41.9; R65.21 Diverticulitis of large intestine with complication K57.32 Demand ischemia I24.8 Atrial fibrillation and flutter I48.91; I48.92 Diarrhea R19.7 Diverticulitis K57.92 Dehydration, severe E86.0
== END 2022-06-13 23:47 | disposition expired | DRG 391 ==
LOC: ER 10:46 → ICU 12:17
PROVIDERS: Family Medicine; Admitting Provider Internal Medicine; Emergency Provider Emergency Medicine; PCP Family Medicine; Visit Provider Internal Medicine
DX: K57.20 Diverticulitis of large intestine with perforation and abscess without bleeding (principal); A41.9 Sepsis, unspecified organism; R65.21 Severe sepsis with septic shock; N17.0 Acute kidney failure with tubular necrosis; J18.9 Pneumonia, unspecified organism; I48.92 Unspecified atrial flutter; E87.2 Acidosis; I24.8 Other forms of acute ischemic heart disease; E44.1 Mild protein-calorie malnutrition; I95.9 Hypotension, unspecified; I48.91 Unspecified atrial fibrillation; E86.0 Dehydration; W06.XXXA Fall from bed, initial encounter; I10 Essential (primary) hypertension; Z68.22 Body mass index [BMI] 22.0-22.9, adult; Z66 Do not resuscitate; Z51.5 Encounter for palliative care; R57.1 Hypovolemic shock; R68.0 Hypothermia, not associated with low environmental temperature; E83.51 Hypocalcemia; R73.9 Hyperglycemia, unspecified
CPT/HCPCS: 36415; 36416; 36569; 36592; 36600; 51702; 71045; 74176; 80048; 80051; 80053; 81001; 82044; 82330; 82436; 82550; 82570; 82803; 82805; 82962; 83605; 83735; 84100; 84133; 84145; 84300; 84484; 85007; 85025; 85999; 86140; 87040; 87086; 87635; 93005; 93306; 94660; 96365; 96366; 96367; 96375; 99291; J0282; J0610; J1170; J1630; J1815; J1940; J2270; J2405; J2543; J2920; J2930; J3370; J3475; J3480; J3490; J7030; J7040; J7050; J7060; P9047